=== PATIENT | female | born 1975 | race Caucasian/White ===

== ENCOUNTER → 2019-07-12 | Outpatient (CLI) | payer OTHER, SELFPAY ==
[2019-07-15 11:16] LABS: HPV Reflexed? NOT INDICATED
== END | disposition home or self-care (01) ==
LOC: LABSPEC 13:58
PROVIDERS: Visit Provider Obstetrics & Gynecology
DX: Z12.4 Encounter for screening for malignant neoplasm of cervix (principal)
CPT/HCPCS: 88175; G0145

== ENCOUNTER 2020-11-06 11:50 | Day surgery (SDC) | payer OTHER, SELFPAY ==
[2020-11-02 11:45] LABS: Hemoglobin 12.6 g/dL (12.0-15.0); Mean Corp Hgb Conc 32.3 g/dL (32-36); Mean Corpuscular Volume 95.8 fL (81-99); Mean Platelet Vol. 9.7 fl (6.2-12.0); Platelet Count 263 K/mm3 (150-450); RBC Distribution Width CV 12.2 % (11.6-14.6); RBC Distribution Width SD 42.7 fl (35.1-43.9); Red Blood Count 4.07 M/mm3 (4.2-5.4); White Blood Count 4.6 K/mm3 (4.4-11.0)
[2020-11-02 11:48] LABS: Prothrombin Time (Protime)PT. 12.3 SECONDS (11.7-14.9)
[2020-11-02 11:49] LABS: Partial Thromboplast Time 22.7 Seconds (24.1-36.2)
--- NOTE | 2020-11-05 20:51 | PCM.HP.BLA ---
History and Physical Date of Admission: 11/06/20 Surgical History and Physical Catherine Morris, a 45 year old female 5 0 0 0 5, presents for L/S LSO and right salpingectomy on November 06, 2020 at 1:30. -- Chronic LLQ Pain; Prior ESSURE -- Concerns regarding LLQ pain from a (L) Ovarian cyst found on US in . 45 y.o. G 5 P 5 non-smoker with history of Irregular Menses and LMP of 08-08-20. Reports that the pain will often radiate around to her back, often cramping with a pulling, stabbing sensation. Adds that she feels very bloated and just not feeling well. LLQ Pain began 6 months ago. Catherine claims it started gradually and has been present Cyst on Ovary seen in . It occurs all the time. It is located in the LLQ of the abdomen. Catherine characterizes it to be to the back. Catherine characterizes the quality cramping.; Catherine characterizes the quality searing.; Catherine characterizes the quality stabbing. Severity is moderate and not improving; Associated signs and symptoms are no menses for 3-4 months. Additional comments are: Feels awful. Additional comments are: cyst noted on left ovary in June. MEDICATIONS HISTORY: Current medications prescribed by our practice are: 1. Provera 10 mg tablet, One pill by mouth once a day ALLERGIES: NKA Infections - Chicken pox Illnesses - no serious past illnesses Accidents - no injuries of consequence Hospitalizations - Childbirth Review of Systems: GENERAL - Denies fever, or chills SKIN - Denies skin changes EYES - Denies visual changes EARS - Denies difficulty hearing NOSE - Denies nasal congestion or bleeding MOUTH - Denies sore throat or difficulty swallowing NECK - Denies pain or swelling RESPIRATORY - Denies shortness of breath or wheezing CARDIOVASCULAR - Denies palpitations or chest pain GASTROINTESTINAL - Denies nausea, vomiting, diarrhea, constipation GENITOURINARY - Denies dysuria, frequency of urination, incontinence of urine MUSCULOSKELETAL - Denies joint or muscle pain NEUROLOGICAL - Denies localized numbness or weakness PSYCHIATRIC - Denies depression or anxiety ENDOCRINE - Denies heat or cold intolerance, weight loss or gain HEMATO-IMMUNOLOGIC - Denies excesive bleeding with cuts SOCIAL HISTORY: Alcohol Use - occasionally Smoking - denies use Diet - no special diet Lifestyle - Exercise - active Seat Belt Use - always 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 Maternal Grandfather: Prostate CA. MENSTRUAL HISTORY: LMP Known?- DefiniteAmount/Duration - 4 days, Regularity - Irregular, Frequency - monthly days, LMP - 08/07/20, Age Onset Menarche - 17 PAST PREGNANCIES: Total Pregnancies - 5; Full Term Pregnancies - 5; Premature - 0; Abortions, Induced - 0; Abortions, Spontaneous - 0; Ectopics - 0; Multiple Births - 0; Living Children - 5 SURGICAL HISTORY: 1. 01/11/2010 Ess[facility] Tubal ; Dylon Coelho M.D. - PHYSICAL EXAM BP- 100/70 Sitting, Right arm, regular cuff Weight- 144.29901 lbs Height- 69.00 inch BMI:21.43 CONSTITUTIONAL - NAD, well nourished, and well developed SKIN - No rash, lesions, or ulcers HEENT - Normocephalic, PERRLA, EOMI NECK - No nodes, no nuchal rigidity and thyroid normal size and texture LYMPH NODES - Palpation of lymph nodes in neck and groins within normal limits LUNGS - CTA x2 without wheezes, crackles or rales CARDIAC - Regular rate and rhythm without rubs, murmurs, or gallops ABDOMEN - Without hepatosplenomegaly, distention, masses, rebound, or guarding; normal bowel sounds; no hernias EXTREMITIES - No edema or calf tenderness NEUROLOGICAL - Cranial nerves II-XII grossly intact PSYCHIATRIC - A and O to time, place, person, mood and affect ASSESSMENT/PLAN: 1. Abdominal Pain,LLQ Likely persistent left ovarian cyst by history and time course. Not resolving. Will proceed with L/S LSO and RS. Discussed RBAs including possibility of not helping or need for laparotomy.
[2020-11-06] VITALS (8 sets, daily range): BP systolic 91–109; BP diastolic 54–68; PULSE 58–74; RESP 16–18; TEMP 36.1–36.4; O2SAT 98–100; BMI 21.7
[2020-11-06 12:35] LABS: Internal QC Validated? YES +Cl - CLEAR BKGD; Pregnancy, Urine Negative Negative
--- NOTE | 2020-11-06 12:40 | OP.PCM_ITS ---
Problems Associated Problem List Diagnoses (1) Left lower quadrant abdominal pain: Report of Operation Pre-Operative Diagnosis: Chronic Left Lower Quadrant Pain Post-Operative Diagnosis: Chronic Left Lower Quadrant Pain Surgery/Procedure Performed:: Laparoscopic Left Salpingo-Oophorectomy, Right Salpingectomy, Removal of ESSURE Coils Description of Surgical Findings:: 8 cm uterus with normal-appearing tubes and ovaries. ESSURE coils present and removed. Adhesions of left sigmoid colon to left anterior abdominal wall. Viewed intraoperatively by Dr. Diaz who thought this may represent diverticular disease. CT scan recommended if pain does not resolve. Surgeon: Dylon Coelho superintendent board mill: Justice Stafford Type of Anesthesia: General (Endotracheal) Anesthesiologist: Fredo Mendoza Specimen's removed: Left fallopian tube and ovary and right fallopian tube; ESSURE coils Estimated Blood Loss (mL): Minimal Fluids Replaced: Crystalloid Description of Procedure: Indications: This is a 45 year old patient who has the above diagnosis. She has persisted in having pain on the left lower quadrant for several months and has had a small persistent left ovarian cyst noted. She had a prior Essure tubal done. She understands that there is no guarantee that this procedure will relieve her of the pain that she has been having and that it is possible laparotomy may be necessary. All questions were answered and we consider the patient well-informed. Procedure: The patient was taken to the operating room where after induction of general anesthesia, she was placed in the dorsolithotomy position and prepped and draped in the usual sterile fashion. The bladder was drained of approximately 100 cc of clear yellow urine with a catheter. Anterior cervix was grasped with the tenaculum. Conn cannula was placed and attention was turned toward the laparoscopic portion of the procedure. Approximately 24 cc of half percent ropivacaine was injected subumbilically, suprapubically and midway between. A 5 mm bladeless trocar was placed subumbilically and intraperitoneal placement confirmed. After CO2 insufflation was complete, a 10/12 mm bladeless trocar was introduced suprapubically. The above findings were noted. A 5 mm bladeless port was then placed midway between these 2 ports for tubal manipulation. Each fallopian tube was identified to its fimbriated end and an Enseal device was used to divide the mesosalpinx to the uterus on the right and the infundibulopelvic ligaments on the left. Tubes and left ovary were removed through the lower 10/12 mm port. The peritoneal cavity and upper abdomen were examined and noted to be normal except for some adhesions in the left lower anterior area and adjacent to the sigmoid colon. Dr. Diaz was in the surgical suite area and he visualized this area and felt it may be some diverticular disease. Photographs were taken. Laparoscopic instruments with as much CO2 gas as possible were removed and incisions were closed with interrupted 4-0 Monocryl suture. Steri-Strips placed across the incision. Vaginal instruments were removed. The patient tolerated the procedure well was taken to recovery room in satisfactory condition and sponge instrument and needle counts were all reportedly correct. Estimated blood loss for the case was minimal. There were no apparent complications of the surgery. Grafts/Implants Used: None Complications None Admit VTE Documentation VTE Present on Admission: Yes VTE Mechan Device Prophylaxis: SCD's
--- NOTE | 2020-11-06 12:44 | PCM.DC ---
Discharge Instructions Diet Discharge Diet: No restrictions (Increase fluid intake for the next 48 hours.) Activity Discharge Activity: Return to Normal Activity, May not drive while taking narcotic pain medications., May Shower and May Take a Tub Bath May resume sexual activity in: 2 weeks Lifting Restrictions: 25 pounds for 2 weeks Additional Activity Instructions:: Ambulate often the next week after surgery. Dressing / Incision Call your doctor if your incision/area has: Continuous Slow Oozing, Sudden Increased Bleeding, Increased Pain/ Swelling, Increased Redness and Foul Smelling Discharge Call your doctor if you observe: Fever of 101 or Higher, Inability to urinate, Inability to have a bowel movement and Using more than one pad per hour Remove Dressing in: do not remove dressing Follow Up Care Please Follow Up With: Dylon Coelho MD When: Call [phone] for an appointment in 2 to 3 weeks Test Results: Test results from this visit will be discussed in further detail at your follow-up appointment, if applicable. Discharge Plan Admission Primary Reason for Your Visit: Left Ovary and Bilateral Tubal Removal Attending Provider: Dylon Coelho Primary Care Provider: Care Floridalma Becerra Primary Discharge Orders/Prescriptions Prescriptions: New oxycodone 5 mg capsule 5 mg PO Q6H PRN (Reason: pain) 7 Days Qty: 10 RF: 0 Continued digestive enzymes Capsule 1 cap PO DAILY RF: 0 lysine 500 mg Tablet 500 mg PO DAILY RF: 0 multivitamin Capsule 1 cap PO DAILY RF: 0 Zyrtec 10 mg Capsule 10 mg PO DAILY PRN (Reason: allergies) RF: 0 Probiotic 10 billion cell Capsule 10,000 mmu cells PO DAILY RF: 0 peppermint oil 50 mg Capsule,Delayed Release(Dr/Ec) 50 mg PO DAILY RF: 0 Referrals / Follow Up: Care PhysicianFloridalma Primary [Primary Care Provider] - Disposition Disposition (needs filled in before D/C Order can be placed): Home, self care
[2020-11-06] MEDS: Lactated Ringers 1,000 ML 100 ML IV (12:50)
--- NOTE | 2020-11-06 13:25 | OV_PTH ---
PATIENT: EDINSON MONTALVO [place] [facility] [place][id number] AGE/SX: 45/F ROOM: RE11/06/[address]: Dr. Dylon Coelho MD : 1975 BED: DIS: 11/06/2020 SPEC #: [id number] RECD: 11/07/20 07:44 STATUS: KAILA REQ #: [id number] BELLA: 11/06/20 13:[address]: Dylon Coelho DEPT: SURGICAL PATHOLOGY RECD BY: Deisi Paez ENTERED: 11/07/20 08:32 SP TYPE: OVARY OTHR DR: No Primary Care Phys Tissues: Ovary, NOS Procedures: Surgery Specimen Level IV HEADER OPERATION: Left laparoscopic salpingo-oophorectomy, right laparoscopic salpingectomy PRE-OP DIAGNOSIS: Chronic left lower quadrant pain TISSUE SUBMITTED: Left ovary and fallopian tube, right fallopian tube, Essure MICROSCOPIC DIAGNOSIS Left ovary and fallopian tube and right fallopian tube and Essure coils, left salpingo-oophorectomy, right salpingectomy: Bilateral fallopian tubes - no pathologic diagnosis. Left ovary - no pathologic diagnosis. Focal tubo-ovarian adhesions. Essure coiled device (gross only). SJ:kathleen 11/08/2020 MICROSCOPIC DESCRIPTION Slides are reviewed. GROSS DESCRIPTION Received in fixative is one container labeled with the patient's name and designated left ovary and fallopian tube and right fallopian tube, Essure coils. The specimen consists of one fallopian tube identified as right fallopian tube and a second fallopian tube and adjacent ovary identified as left fallopian tube and ovary. The right fallopian tube measures 5.5 cm in length and 0.4 cm in diameter. The fimbrial end is identified. Sections reveal unremarkable cut surfaces. The left fallopian tube measures 6 cm in length and 0.3 cm in diameter. The fimbrial end is identified. Focal tubo-ovarian adhesions are noted close to the fimbrial end. Sections reveal unremarkable cut surfaces. A portion of the Essure device is also present in the proximal portion of the fallopian tube. The left ovary measures 2.5 x 1 x 0.8 cm. Sections reveal unremarkable cut surfaces. Also present in the container are three variable sized pieces of metallic coiled device consistent with Essure device. One of the Essure devices is completely stretched out and measures 15 cm in length. The two small coiled metallic device measures 2.5 and 3 cm in length. Welder/Fabricator sections are submitted in four cassettes as follows: 1 - right fallopian tube, 2 - left fallopian tube, 3 & 4 - left ovary, entirely submitted. Essure devices are for gross identification only. / ORA:kathleen 11/07/20 TC:4 CPT: 50247 x2
[2020-11-06] MEDS: Ropivacaine 0.5% 30 ML Vial (13:37)
== END 2020-11-06 17:23 | disposition home or self-care (01) ==
LOC: SDC 11:54 → AC 11:56
PROVIDERS: Anesthesiology; Referring Provider Obstetrics & Gynecology; Visit Provider Obstetrics & Gynecology
PROC: (CPT 58661; principal; 2020-11-06 13:10)
DX: N73.6 Female pelvic peritoneal adhesions (postinfective) (principal); N92.6 Irregular menstruation, unspecified; R10.32 Left lower quadrant pain; G89.29 Other chronic pain; Z20.822 Contact with and (suspected) exposure to COVID-19
CPT/HCPCS: 00840; 58661; 36415; 81025; 85027; 85610; 85730; 86850; 86900; 86901; 87426; 88305; C9803; J7120; C1760; J2405

== ENCOUNTER 2021-07-31 15:13 | Outpatient (CLI) | payer OTHER, SELFPAY ==
[2021-08-07 17:26] LABS: HPV Reflexed? NOT INDICATED
== END 2021-07-31 23:59 | disposition home or self-care (01) ==
LOC: LABSPEC 15:15
PROVIDERS: Visit Provider Obstetrics & Gynecology
DX: Z12.4 Encounter for screening for malignant neoplasm of cervix (principal)
CPT/HCPCS: 88175; G0145

== ENCOUNTER → 2022-11-05 | Outpatient (CLI) | payer OTHER, SELFPAY ==
[2022-11-13 10:09] LABS: HPV APTIMA, High Risk Negative (Negative)
== END | disposition home or self-care (01) ==
PROVIDERS: Visit Provider Obstetrics & Gynecology
DX: Z12.4 Encounter for screening for malignant neoplasm of cervix (principal)
CPT/HCPCS: 87624; 88175; G0145

== ENCOUNTER → 2023-03-03 | Outpatient (CLI) | payer OTHER, SELFPAY ==
--- NOTE | 2023-03-03 08:46 | BI_ITS ---
MAMMOGRAPHY - BILATERAL SCREENING REASON FOR EXAM: Female, 48 years old. Routine annual screening examination. PERTINENT HISTORY: Non-contributory. TECHNIQUE: Digital bilateral breast raimundo (3D mammographic acquisition) in the CC and MLO projections. 2-D mediolateral oblique (MLO) and craniocaudad (CC) views of both breasts were obtained. CAD: Full Field Digital Mammography with Computer Added Detection was performed. COMPARISON: Comparison is made with prior outside examination is March 15, 2021. FINDINGS: Breast Composition: The breasts are heterogeneously dense, which may obscure small masses. There are no dominant masses or suspicious calcifications. Stable small benign-appearing bilateral axillary lymph nodes. No other significant abnormalities are identified. There has been no significant change since the prior study. BI/SCRN MAMM (CAD)W/RAIMUNDO BILAT IMPRESSION: Stable bilateral screening mammogram. Yearly follow-up mammogram recommended. (A) ASSESSMENT CATEGORY: BIRADS Category 2: Benign. A letter regarding these results will be sent to the patient by the facility within 30 days. Approximately 10% of breast cancers are not detected by mammography. A normal mammogram should not delay biopsy of a clinically suspicious abnormality. [id number] Electronically Signed: Carlitos Watson MD at 10:07 EDT ,
== END | disposition home or self-care (01) ==
LOC: OPBI 08:44
PROVIDERS: Referring Provider Obstetrics & Gynecology; Visit Provider Obstetrics & Gynecology
DX: Z12.31 Encounter for screening mammogram for malignant neoplasm of breast (principal)
CPT/HCPCS: 77063; 77067

== ENCOUNTER → 2024-12-13 | Outpatient (CLI) | payer OTHER, SELFPAY ==
--- NOTE | 2024-12-13 14:05 | BI_ITS ---
EXAM: SCRN MAMM (CAD)W/RAIMUNDO BILAT DATE: 12/13/2024 CLINICAL HISTORY: F, Age 49 y/o , SCREENING FOR BREAST CANCER TECHNIQUE: SCRN MAMM (CAD)W/RAIMUNDO BILAT COMPARISON: Prior exam(s) dated 03/03/2023. FINDINGS: TISSUE DENSITY: The breasts are heterogeneously dense, which may obscure small masses. The mammogram demonstrates that the patient has dense breasts. Supplemental screening with whole breast ultrasound or MRI may be considered for further evaluation. Bilateral Breast Mammographic Findings: No significant masses, calcifications or other abnormalities are identified. BI/SCRN MAMM (CAD)W/RAIMUNDO BILAT IMPRESSION: There is no mammographic evidence of malignancy. OVERALL FINAL ASSESSMENT BI-RADS 1: NEGATIVE. RECOMMEND ANNUAL MAMMOGRAPHIC SCREENING. RECOMMENDATION: Routine annual follow-up in 1 Year A letter with findings and recommendations will be mailed to the patient. Reading Location: [id number]
--- OUTSIDE RECORDS SUMMARY | 2024-12-13 23:54 | XMS RPT_ITS | CCD ---
Author Organization [facility] Care Team Providers Care Category Director Name Role Phone BETITO SIMMONS MD Consulting Unavailable ANUSHAANTHROXANE DAWSON MD Admitting Unavailab le MARCANTHONYROXANE MD Primary Care Unavailab le ROXANE TALBOT MD Attending Unavailab le PROVIDER, UNKNOWN Consulting Unavailable PROVIDER, UNKNOWN Consulting Unavailable PROVIDER, UNKNOWN Consulting Unavailable BETITO SIMMONS MD Consulting Unavailable MARCANTHROXANE DAWSON MD Admitting Unavailab le MARCANTHONYROXANE MD Primary Care Unavailab le MARCANTHROXANE DAWSON MD Attending Unavailab le PROVIDER, UNKNOWN Consulting Unavailable PROVIDER, UNKNOWN Consulting Unavailable PROVIDER, UNKNOWN Consulting Unavailable BETITO SIMMONS MD Consulting Unavailable MARVA, KEYUR CASTING WHEEL OPERATOR HELPER Admitting Unavailable MARVA, KEYUR CASTING WHEEL OPERATOR HELPER Primary Care Unavailable MARVA, KEYUR CASTING WHEEL OPERATOR HELPER Attending Unavailable PROVIDER, UNKNOWN Consulting Unavailable PROVIDER, UNKNOWN Consulting Unavailable PROVIDER, UNKNOWN Consulting Unavailable Care Physician, No Primary Primary Care Provider Unavailable Care Physician, No Primary Referring Provider Un available Dr. Roxane Talbot Attending Provider KI COTTRELL, LILIA Koch Unavailable BETITO EMERSON MD Unavailable FLAVIO JIMENEZ MD Unavailable [phone] Aldo SIMMONS MD Unavailable [phone] JAIMEE STEINBERG MD Unavailable [phone] Bella Medina RN Unavailable Unavailable Summer Ordaz Unavailable Unavailable Estela Tolbert RN Unavailable Unavailable SUMMER ORDAZ Unavailable Unavailable PEBBLES ALEGRIA-Monae, JAIME Draper Unavailable Unav ailable Patricia Marquez Unavailable Unavailable Unavailable Unavailable Roxane Talbot Attending Unavailable Care Physician, No Primary Primary Care Unava ilable Care Physician, No Primary Referring Unava ilSinan Mooreon Attending Unavailable Roxane Talbot Referring Unavailable Care Physician, No Primary Primary Care Unava ilable Care Physician, No Primary Primary Care Provider Unavailable Julieth COTTRELL, Dr. Betts Attending Provider Dr. Roxane Talbot MD Referring Provider Care Physician, No Primary Referring Provider Un available Medications Current Medications Medication Drug Class(es) Dates Sig (Normalized) Sig (Original) Biote SGS + (1 source) Start: 12-08-2023 Biote SGS + Active 1 NMA PO DAILY December 08, 2023 12:00am cetirizine hydrochloride 10 mg oral capsule (6 sources) Histamine-1 Receptor Antagonist Start: 11-05-2022 take 1 capsule by mouth once daily as needed Cetirizine (Zyrtec) 10 mg capsule Active 10 mg PO DAILY as needed November 05, 2022 12:00am Start: 10-30-2020 End: 01-11-2021 take 1 capsule by mouth once daily as needed Cetirizine (Zyrtec) 10 mg Capsule Discontinued 10 mg PO DAILY as needed for allergies October 30, 2020 12:00am January 11, 2021 8:51am cholecalciferol 0.125 mg oral capsule (4 sources) Vitamin D Start: 12-08-2023 take 1 capsule by mouth once daily Cholecalciferol (Vitamin D3) 125 mcg (5,000 unit) capsule Active 125 ug PO DAILY December 08, 2023 12:00am Start: 11-05-2022 End: 12-08-2023 take 1 capsule by mouth once daily Cholecalciferol (Vitamin D3) 25 mcg (1,000 unit) capsule Discontinued 25 ug PO DAILY November 05, 2022 12:00am December 08, 2023 8:43am estrogen testosterone pellets (1 source) Start: 12-13-2024 estrogen testosterone pellets Active TD December 13, 2024 12:00am progesterone 200 mg oral capsule (2 sources) Progesterone Start: 12-08-2023 End: 12-08-2023 take 1 capsule by mouth once daily Progesterone Micronized 200 mg capsule Active 200 mg PO DAILY December 08, 2023 8:45am Completed/Discontinued Medications Medication Drug Class(es) Dates Sig (Normalized) Sig (Original) amoxicillin 500 mg oral capsule (4 sources) Penicillin-class Antibacterial Start: 06-29-2018 End: 10-26-2018 take 1 capsule by mouth three times daily Amoxicillin 500 MG Oral Capsule ; 1 (one) Capsule three times daily for 7 days Quantity: 21 {Capsule} Refills: 0 Ordered: 26-Oct-2018 Start: 29-Jun-2018 End: 26-Oct-2018 Status: Inactive Start: 12-22-2015 End: 01-01-2016 take 1 capsule by mouth three times daily AMOXICILLIN, 500MG (Oral Capsule) ; 1 (one) Capsule three times daily for 10 days Quantity: 30 {Capsule} Refills: 0 Ordered: 04-Oct-2016 MD LILIA EMERSON Start: 22-Dec-2015 End: 01-Jan-2016 Status: Inactive amoxicillin 875 mg / clavulanate 125 mg oral tablet (1 source) Penicillin-class Antibacterial Start: 07-10-2023 End: 10-14-2023 Amoxicillin-Pot Clavulanate 875-125 mg tablet Discontinued 1 {tbl} PO Q12H 14 0 July 10, 2023 1:00am October 14, 2023 8:35am cromolyn sodium 40 mg/ml ophthalmic solution (2 sources) Mast Cell Stabilizer Start: 10-02-2012 End: 11-01-2012 CROMOLYN SODIUM, 4% (Ophthalmic Solution) ; 2 (two) drop(s) prior to exposure for 30 days Quantity: 30 {Solution} Refills: 0 Ordered: 05-Jan-2014 MD FLAVIO JIMENEZ Start: 02-Oct-2012 End: 01-Nov-2012 Status: Inactive dexamethasone 1 mg/ml / neomycin 3.5 mg/ml / polymyxin b 27011 unt/ml ophthalmic suspension (2 sources) Aminoglycoside Antibacterial, Polymyxin-class Antibacterial, Corticosteroid Start: 10-02-2012 End: 10-07-2012 take 1 drop(s) into the eye(s) every four hours MAXITROL, 3.5-29543-8.1 (Ophthalmic Suspension) ; 1 (one) Drop(s) every four hours for 5 days Quantity: 5 {Suspension} Refills: 0 Ordered: 05-Jan-2014 MD FLAVIO JIMENEZ Start: 02-Oct-2012 End: 07-Oct-2012 Status: Inactive Digestive Enzymes (2 sources) Start: 10-30-2020 End: 01-11-2021 take 1 capsule by mouth once daily Digestive Enzymes Discontinued 1 CAP PO DAILY October 30, 2020 12:00am January 11, 2021 8:51am Digestive Enzymes Capsule (1 source) Start: 10-30-2020 End: 01-11-2021 take 1 capsule by mouth once daily Digestive Enzymes Capsule Discontinued 1 NMA PO DAILY October 30, 2020 12:00am January 11, 2021 8:51am 12 hr fexofenadine hydrochloride 60 mg / pseudoephedrine hydrochloride 120 mg extended release oral tablet (2 sources) alpha-Adrenergic Agonist, Histamine-1 Receptor Antagonist take 1 tablet by mouth once daily MAGED-D [employer]ERGY [employer] CONGESTION, 60-120MG (Oral Tablet Extended Release 12 Hour) ; 1 daily (60-120 MG) Status: Inactive fluticasone propionate 0.05 mg/actuat metered dose nasal spray (2 sources) Corticosteroid Start: 09-25-2012 End: 12-22-2015 FLUTICASONE PROPIONATE, 50MCG/ACT (Nasal Suspension) ; 1 (one) each nostril squirt two times daily for 0 days Quantity: 1 {bottle(s)} Refills: 0 Ordered: 22-Dec-2015 THOR Medina Start: 25-Sep-2012 End: 22-Dec-2015 Status: Inactive hydrocortisone 10 mg/ml / neomycin 3.5 mg/ml / polymyxin b 79969 unt/ml otic suspension (2 sources) Aminoglycoside Antibacterial, Polymyxin-class Antibacterial, Corticosteroid Start: 12-22-2015 End: 12-29-2015 NEOMYCIN-POLYMYXIN- HC, 3.5-43992-7 (Otic Suspension) ; two drop(s) four times daily for 7 days Quantity: 1 {Bottle} Refills: 0 Ordered: 04-Oct-2016 MD LILIA EMERSON Start: 22-Dec-2015 End: 29-Dec-2015 Status: Inactive lactobacillus acidophilus [id number] unt oral capsule (3 sources) Start: 10-30-2020 End: 01-11-2021 take 10 capsules by mouth once daily Lactobacillus Acidophilus (Probiotic) 10 billion cell Capsule Discontinued 53327 NMA PO DAILY October 30, 2020 12:00am January 11, 2021 8:51am lysine 500 mg oral tablet (3 sources) Start: 10-30-2020 End: 01-11-2021 take 1 tablet by mouth once daily Lysine 500 mg Tablet Discontinued 500 mg PO DAILY October 30, 2020 12:00am January 11, 2021 8:51am Multivitamin Capsule (1 source) Start: 10-30-2020 End: 11-05-2022 Multivitamin Capsule Discontinued 1 NMA PO DAILY October 30, 2020 12:00am November 05, 2022 2:40pm Multivitamin preparation (2 sources) Start: 10-30-2020 End: 11-05-2022 take 1 capsule by mouth once daily Multivitamin Discontinued 1 CAP PO DAILY October 30, 2020 12:00am November 05, 2022 2:40pm oxyCODONE hydrochloride 5 mg oral capsule (3 sources) Opioid Agonist Start: 11-06-2020 End: 01-11-2021 take 1 capsule by mouth every six hours as needed for pain Oxycodone 5 mg capsule Discontinued 5 mg PO EVERY 6 HOURS as needed for pain 10 7 0 November 06, 2020 January 11, 2021 8:50am Acute postoperative pain Other acute postprocedural pain Peppermint oil (2 sources) Start: 10-30-2020 End: 01-11-2021 take 50 mg by mouth once daily Peppermint Oil Discontinued 50 MG PO DAILY October 30, 2020 12:00am January 11, 2021 8:50am Peppermint Oil 50 mg Capsule,Delayed Release(Dr/Ec) (1 source) Start: 10-30-2020 End: 01-11-2021 take 1 capsule by mouth once daily Peppermint Oil 50 mg Capsule,Delayed Release(Dr/Ec) Discontinued 50 mg PO DAILY October 30, 2020 12:00am January 11, 2021 8:50am predniSONE 20 mg oral tablet (6 sources) Start: 11-25-2020 End: 11-28-2020 take 1 tablet by mouth once daily predniSONE 20 MG Oral Tablet ; 1 (one) Tablet daily for 3 days Quantity: 3 {Tablet} Refills: 0 Ordered: 15-Mar-2021 SABRA ROGEL Start: 25-Nov-2020 End: 28-Nov-2020 Status: Inactive Start: 07-25-2020 End: 08-06-2020 take 6 tablets by mouth once daily at mealtime predniSONE 10 MG Oral Tablet ; 6 Tablets days 1,2,3; 4 tablets days 4,5,6; 2 tablets days 7,8,9; 1 tablet days 10,11,12. for 12 days Quantity: 40 {Tablet} Refills: 0 Ordered: 25-Jul-2020 MD Aldo SIMMONS Start: 25-Jul-2020 End: 06-Aug-2020 Status: Inactive Comments: Take with food. Start: 10-02-2012 End: 10-14-2012 PREDNISONE (STEVE), 10MG (Oral Tablet) ; 1 Tablet D 1-3=6tab daily D 4-6=4tab D 7-9=2tab [id number] for 12 days Quantity: 40 {Tablet} Refills: 0 Ordered: 02-Oct-2012 MD FLAVIO JIMENEZ Start: 02-Oct-2012 End: 14-Oct-2012 Status: Inactive Comments: Days 1,2,3 = 6 tabs daily; Days 4,5,6 = 4 tabs daily; Days 7,8,9 = 2 tabs daily; Days 10,11,12 = 1 tab daily; Take with food. Take each day's medication at breakfast (with food). Comment on above: Days 1,2,3 = 6 tabs daily; Days 4,5,6 = 4 tabs daily; Days 7,8,9 = 2 tabs daily; Days 10,11,12 = 1 tab daily; Take with food. Take each day's medication at breakfast (with food). Take with food. 120 actuat testosterone 10 mg/actuat topical gel (1 source) Androgen Start: 12-08-2023 End: 12-13-2024 Testosterone 10 mg/0.5 gram /actuation gel in metered-dose pump Discontinued 2 NMA TD EVERY MORNING December 08, 2023 12:00am December 13, 2024 2:47pm apply evenly over front and inner area of EACH thigh; avoid water for >=2 hrs Problems Active Problems Problem Classification Problem Date Documented Date Episodic/Chronic Abdominal pain (10 sources) Left lower quadrant pain; Translations: [Left lower quadrant pain] 05-24-2021 Episodic Comment on above: left Administrative/social admission (6 sources) Patient encounter status; Translations: [Counseling, unspecified] 10-11-2020 Episodic Allergic reactions (10 sources) Urticaria; Translations: [Urticaria, unspecified] 11-25-2020 Episodic Fever of unknown origin (1 source) Fever; Translations: [Fever, unspecified] 07-10-2023 Episodic Malaise and fatigue (1 source) Other fatigue; Translations: [Other fatigue] Onset: 10-04-2022 Episodic Menopausal disorders (4 sources) Menopausal syndrome; Translations: [Menopausal and female climacteric states] 11-05-2022 Chronic Comment on above: information given, o n bioidentical HRT by another provider, handouts given regarding risks, encouraged FDA approved products reviewed indications for franco if irregular bleeding. Menstrual disorders (4 sources) Irregular periods; Translations: [Irregular menstruation, unspecified] 10-11-2020 Chronic Other ear and sense organ disorders (2 sources) Otalgia, right ear; Translations: [Otalgia, unspecified] 12-22-2015 Episodic Other female genital disorders (2 sources) Vaginal bleeding; Translations: [Abnormal uterine and vaginal bleeding, unspecified] 12-13-2024 Chronic Comment on above: on bioidentical HRT , ordered pelvic US Other nervous system disorders (3 sources) Acute postoperative pain; Translations: [Other acute postprocedural pain] 11-06-2020 Episodic Other nutritional; endocrine; and metabolic disorders (1 source) Abnormal weight gain; Translations: [Abnormal weight gain] Onset: 10-04-2022 Episodic Other screening for suspected conditions (not mental disorders or infectious disease) (11 sources) Abnormal level of hormones in specimens from female genital organs; Translations: [Encounter for screening mammogram for malignant neoplasm of breast] Onset: 03-15-2022 Episodic Other upper respiratory disease (6 sources) Allergic rhinitis due to pollen; Translations: [Allergic rhinitis due to pollen] 10-07-2024 Chronic Other upper respiratory disease (13 sources) Seasonal allergy; Translations: [Other seasonal allergic rhinitis] 10-11-2020 Chronic Comment on above: Has tried oral and n javon antihistamines/steroids, eye drops. Other upper respiratory disease (4 sources) Allergic rhinitis; Translations: [Allergic rhinitis, unspecified] 09-12-2011 Chronic Other upper respiratory infections (4 sources) Bacterial sinusitis; Translations: [Chronic sinusitis, unspecified] 10-11-2020 Chronic Other upper respiratory infections (4 sources) Acute bacterial pharyngitis; Translations: [Acute pharyngitis due to other specified organisms] 12-22-2015 Episodic Past or Other Problems Problem Classification Problem Date Documented Da te Episodic/Chronic Unclassified (2 sources) Allergic Rhinitis.. - The history today is reported by the patient. Symptoms include itchy throat, sneezing, runny nose, itchy nose, itchy eyes and shortness of breath. Onset was sudden 1 week(s) ago. Note for Allergic Rhinitis..: Has been using maged and zyrtec but is not helping 10-07-2024 Unclassified (2 sources) Allergic Rhinitis.. - Symptoms include sneezing, itchy eyes and coughing. Associated include nasal congestion. Note for Allergic Rhinitis..: Pt takes Zyrtec with some relief. 10-11-2020 Unclassified (2 sources) !Patient notification of lab results - Dr. Simmons. The test(s) that you had done were/was blood work (Your labs were normal but the eosinophil count was elevated (which is often the case with an allergy or hives). This reinforces that it's likly hives and hopefully the prednisone will quiet the immune system and resolve the rash.). You should call our office if you have any questions. Please continue your current medication/therapy and let us know if your symptoms do not improve. 07-27-2020 Unclassified (2 sources) Rash - The onset of the rash has been acute and has been occurring for 9 days. The rash is characterized as red and flat. There has been associated itching. Note for Rash: Pt c/o rash on entire body except for head. She was having back pain in May and saw a chiropractor in Jun who did an xray. The xray showed an inflamed gut. She has tried Benadryl, but if makes her fatigued and an allergy medication which helped for a few hours. She started taking a daily vitamin, probiotic, peppermint oil pill, and a digestive pill yesterday. 07-25-2020 Unclassified (2 sources) Allergic Rhinitis.. - The history today is reported by the patient. Symptoms include rash, itching (skin), runny nose, itchy nose and itchy eyes. The rash is located on the arm(s). The rash is described as red. Note for Allergic Rhinitis..: pt c/o allergies and poison ruben. 10-26-2018 Unclassified (2 sources) sore throat - The onset of the sore throat has been sudden and has been occurring in an intermittent pattern for 1 week. The symptoms have been associated with change in voice, cough, ear pain, runny nose and swelling of neck glands. Note for sore throat: C/O nausea. 06-29-2018 Unclassified (2 sources) Allergic Rhinitis.. - The history today is reported by the patient. Symptoms include sneezing, runny nose, itchy nose, itchy eyes, hoarseness and wheezing (when outside). Note for Allergic Rhinitis..: Eyes are red 10-04-2016 Unclassified (2 sources) sore throat - The onset of the sore throat has been sudden and has been occurring in a persistent pattern. The symptoms have been associated with change in voice, cough, difficulty in breathing, difficulty in swallowing, ear pain, runny nose, sinus pain and swelling of neck glands. Note for sore throat: Ears have hurt for sometime.Would like to have them checked for infection 12-22-2015 Unclassified (2 sources) Allergic Rhinitis.. - Symptoms include itchy throat, sneezing and itchy eyes. 10-12-2015 Unclassified (2 sources) Eye Itching - The last clinic visit was 1 week(s) ago. Symptoms include eye itching, eye redness, eye burning, eye pain and lid crusting. Symptoms are located in the left eye and the right eye. Onset was 2 day(s) ago. The patient describes this as worsening. Note for Eye itching: Eyes were crusted shut this morning 10-02-2012 Unclassified (2 sources) Allergic Rhinitis.. - The history today is reported by the patient. The last clinic visit was 12 month(s) ago. Management changes made at the last visit include adding medication (kenalog injection). Symptoms include sneezing, itchy nose and itchy eyes. Onset was day(s) ago. Note for Allergic reaction: Usually gets a kenalog injection in the spring. Tried OTC claritin etc without relief. 09-25-2012 Unclassified (2 sources) Rash - The rash has been occurring for 5 days. The course has been constant. The rash is characterized as red. The rash was first seen on the face. It spread to the face, the neck and the trunk. There has been associated itching. Note for Rash: taking OTC poison ruben pills 02-05-2012 Unclassified (2 sources) Allergic Rhinitis.. - Symptoms include itchy throat, sneezing, runny nose and itchy eyes. Onset was 2 week(s) ago. Note for Allergic Rhinitis..: . 09-12-2011 Unclassified (2 sources) Allergic Rhinitis.. - The history today is reported by the patient. Symptoms include runny nose, itchy eyes and coughing. Note for Allergic Rhinitis..: tried OTC maged: 10-15-2010 Results Test Name Value Interpretation Reference Range Facil ity ESTROGENS FRACTION [CCL]on 0 10-08-2022 Estradiol Serum 4.2 pg/mL Normal [facility] Comment on above: Result Comment: REFE RENCE INTERVAL: Estradiol by Tumbler Machine Operator For a complete set of all established reference intervals, refer to [facility]/Tests/Pub/[id number]. This test was developed and its performance characteristics determined by [facility]. It has not been cleared or approved by the [place] Food and Drug Administration. This test was performed in a CLIA certified laboratory and is intended for clinical purposes. Performed By: #### 2 [id number] #### [facility],[address] [place] [address] Estrogens Total 15.7 pg/mL Normal [facility] Comment on above: Result Comment: Refe rence interval of estrogens (pg/mL) Estrone Estradiol Total Estrogens Early follicular <150.0 30.0-100.0 30.0-250.0 Late follicular 100.0-250.0 100.0-400.0 200.0-650.0 Luteal <200.0 50.0-150.0 50.0-350.0 Post-menopausal 3.0-32.0 2.0-21.0 5.0-52.0 REFERENCE INTERVAL: Estrogens Total Calculation For a complete set of all established reference intervals, refer to [facility]/Tests/Pub/[id number]. Performed By: [facility] [address] [place] [address] Hull Line Crew Member: Hans Fisher MD, PhD [address] [address] Kayden Priest III, M.D. [id number] Performed By: #### 2 [id number] #### [address] [address] Estrone Serum 11.5 pg/mL Normal [facility] Comment on above: Result Comment: INTE RPRETIVE INFORMATION: Estrone by Tumbler Machine Operator For a complete set of all established reference intervals, refer to [employer]/Tests/Pub/[id number]. This test was developed and its performance characteristics determined by [facility]. It has not been cleared or approved by the [place] Food and Drug Administration. This test was performed in a CLIA certified laboratory and is intended for clinical purposes. Performed By: #### 2 [id number] #### [address] [address] FSH [CCL]on 10-08-2022 FSH 56.1 mIU/mL Normal See comment [facility] Comment on above: Result Comment: Refe rence range: Follicular: 3.5-12.5 mIU/mL Ovulation: 4.7-21.5 mIU/mL Luteal: 1.7-7.7 mIU/mL Postmenopausal: 25.8-134.8 mIU/mL [address] [address] Kayden Priest III, M.D. [id number] Performed By: #### 2 [id number] #### [address] [address] PROGESTERONE [CCL]on 023 Progesterone <0.2 Normal See comment [facility] Comment on above: Result Comment: Mens trual Cycle Progesterone Reference Ranges: Follicular: <1.0 ng/mL Ovulation: <12.1 ng/mL Luteal: 1.8 to 23.9 ng/mL. Progesterone Reference Ranges vary by gestational period: First Trimester: 11.0 to 44.3 ng/mL Second Trimester: 25.4 to 83.3 ng/mL Third Trimester: 58.7 to 214 ng/mL Post menopausal Progesterone: <0.5 ng/mL Reference: 1. Progesterone (Progesterone III) [package insert V 1.0 Macanese]. [facility], [place], [place]. March 2015. Result rechecked. [address] [place] [address] Kayden Priest III, M.D. [id number] Performed By: #### 2 [id number] #### [address] [address] T3, FREE [CCL]on 10-08-2022 Free T3 [Mass/Vol] 3.7 pg/mL Normal 2.3-4.1 [facility] Comment on above: Result Comment: [address] [address] Kayden Priest III, M.D. [id number] Performed By: #### 2 [address]5949 #### [address] [address] TESTOSTERONE [CCL]on 023 Testosterone [Mass/Vol] ng/dL Normal <40 [facility] Comment on above: Result Comment: [address] [place] [address] Kayden Priest III, M.D. [id number] Performed By: #### 2 [id number] #### [address] [address] THYROGLOBULIN [CCL]on 2022 Thyroglobulin Ab, Serum <0.9 Normal <4.0 [facility] Comment on above: Result Comment: The Thyroglobulin Antibody test was performed using the [employer] DXI paramagnetic particle chemiluminescent immunoassay method. Results obtained with different assay methods or kits cannot be used interchangeably. Performed By: #### 2 [id number] #### [address] [address] Thyroglobulin, Serum 18.1 ng/mL Normal 1.6-50.0 [facility] Comment on above: Result Comment: The Thyroglobulin test was performed using the [employer] DXI paramagnetic particle chemiluminescent immunoassay method. Results obtained with different assay methods or kits cannot be used interchangeably. [id number] Kayden Priest III, M.D. [id number] Performed By: #### 2 [id number] #### [address] [address] DHEA-S [CCL]on 10-05-2022 DHEA-S 60.0 ug/dL Normal 35.4-256.0 [facility] Comment on above: Result Comment: Refe rence ranges are age and gender specific. For additional information, reference range tables can be found in the laboratory test directory. The normal values are based on the following source: Dehydroepiandrosterone sulfate (DHEA S) [package insert V 17.0 Macanese]. [facility], [place], [place]: January 2013. [address] [address] Kayden Priest III, M.D. [id number] Performed By: #### 2 [id number] #### [address] [address] ESTRADIOL-17B [CCL]on 2022 Estradiol-17B <25 Normal [facility] Comment on above: Result Comment: This test is not suitable for patients receiving treatment with the drug Fulvestrant (Faslodex). The drug causes an interference leading to falsely elevated estradiol results. Menstrual cycle Estradiol reference ranges: Follicular : < 234 pg/mL Ovulation : 41 to 398 pg/mL Luteal : < 342 pg/mL Estradiol reference ranges vary by gestational period: First trimester : 154 to 3243 pg/mL Second trimester : 1561 to [address] pg/mL Third trimester : 8285 to >27780 pg/mL Post-menopausal Estradiol reference range: < 41 pg/mL Reference: 1. Estradiol - E2 (Estradiol III) [package insert V 3.0 Macanese]. [facility], [place], [place], November 2015. [address] [place] [address] Kayden Priest III, M.D. [id number] Performed By: #### 2 [id number] #### [facility],[address] [place] [address] CBC + DIFFon 10-04-2022 Baso # 0.10 x10EE3/UL Normal 0.00 - 0.10 [facility] Comment on above: Performed By: #### 2 [id number] #### [facility],[address] [place] [address] Basophils/100 WBC (Bld) 1.4 % Normal 0.0 - 2.0 % [facility] Comment on above: Performed By: #### 2 14248 #### [facility] [facility],[address] [place] [address] 96584 CBC + DIFF Normal [facility] Comment on above: Result Comment: CBC- COMPLETE BLOOD COUNT Performed By: #### 2 [id number] #### [facility],[address] [place] [address] 48368 EO # 0.50 x10EE3/UL Normal 0.00 - 0.50 [facility] Comment on above: Performed By: #### 2 33823 #### [facility],[address] [place] [address] 66984 Eosinophils/100 WBC (Bld) 11.1 % Abnormal 0.0 - 7.0 % [facility] Comment on above: Performed By: #### 2 07355 #### [facility],[address] [place] [address] 74186 Erythrocyte distribution width (RBC) [Ratio] 12.9 % Normal 12.0 - 15.6 % [facility] Comment on above: Performed By: #### 2 06491 #### [facility],[address] [place], [place] [id number] Hematocrit (Bld) [Volume fraction] 38.8 % Normal 34.0 - 46.0 % [facility] Comment on above: Performed By: #### 2 83145 #### [facility],[address] [place], [place] [id number] Hemoglobin (Bld) [Mass/Vol] 13.0 g/dL Normal 12.0 - 16.0 g/dL [facility] Comment on above: Performed By: #### 2 32435 #### [facility],[address] [place], [place] [id number] Lymph # 1.50 x10EE3/UL Normal 0.80 - 2.80 [facility] Comment on above: Performed By: #### 2 03433 #### [facility],[address] [place], [place] [id number] Lymphocytes/100 WBC (Bld) 32.1 % Normal 20.0 - 45.0 % [facility] Comment on above: Performed By: #### 2 08155 #### [facility],[address] [place] [address] 36940 MANUAL DIFF N/A Normal [facility] Comment on above: Performed By: #### 2 83085 #### [facility],[address] [place] [address] 13734 MCH (RBC) [Entitic mass] 31 pg Normal 27 - 33 pg [facility] Comment on above: Performed By: #### 2 11801 #### [facility],[address] [place] [address] 37963 MCHC 34 X10 3 Normal 32 - 36 [facility] Comment on above: Performed By: #### 2 19926 #### [facility],[address] [place] [address] 02253 MCV (RBC) [Entitic vol] 93 fL Normal 80 - 99 fL [facility] Comment on above: Performed By: #### 2 12198 #### [facility],[address] [place] [address] 32673 Tompkins # 0.40 x10EE3/UL Normal 0.20 - 1.00 [facility] Comment on above: Performed By: #### 2 99901 #### [facility],[address] [place] [address] 04418 MONOS % 9.6 % Normal 0.0 - 10.0 [facility] Comment on above: Performed By: #### 2 17430 #### [facility],[address] [place] [address] 49078 Morphology Naren (Bld) [Interp] N/A Normal [facility] Comment on above: Performed By: #### 2 76720 #### [facility],[address] [place] [address] 98887 Neut # 2.10 x10EE3/UL Normal 1.50 - 7.10 [facility] Comment on above: Performed By: #### 2 97556 #### [facility],[address] [place] [address] 42829 Neutrophils/100 WBC (Bld) 45.8 % Abnormal 46.0 - 76.0 % [facility] Comment on above: Performed By: #### 2 80900 #### [facility],[address] [place] [address] 33565 PLATELET 291 x10EE3/UL Normal 150 - 450 [facility] Comment on above: Performed By: #### 2 29558 #### [facility],[address] [place] [address] 75284 Platelet mean volume (Bld) [Entitic vol] 7.8 fL Normal 6.6 - 10.5 fL [facility] Comment on above: Result Comment: AUTO MATED DIFFERENTIAL Performed By: #### 2 31615 #### [facility],[address] [place] [address] 87724 RBC 4.17 x 10EE6/UL Normal 4.10 - 5.30 [facility] Comment on above: Performed By: #### 2 91547 #### [facility],[address] [place] [address] 12156 WBC 4.6 x 10EE3/UL Normal 4.5 - 10.8 [facility] Comment on above: Performed By: #### 2 79040 #### [facility],[address] [place] [address] CMP with eGFRon 10-04-2022 AGE 47 years Normal [facility] Comment on above: Performed By: #### 2 96542 #### [facility],[address] [place] [address] Albumin [Mass/Vol] 4.4 g/dL Normal 3.4 - 5.0 g/dL [facility] Comment on above: Performed By: #### 2 11930 #### [facility],[address] [place] [address] Albumin/Globulin [Mass ratio] 1.4 {ratio} Normal 0.9 - 1.6 [facility] Comment on above: Performed By: #### 2 48898 #### [facility],[address] [place] [address] ALK PHOS 84 U/L Normal 46 - 116 U/L [facility] Comment on above: Performed By: #### 2 70759 #### [facility],[address] [place] [address] ALT [Catalytic activity/Vol] 29 U/L Normal 14 - 59 U/L [facility] Comment on above: Performed By: #### 2 76689 #### [facility],[address] [place] [address] Anion gap [Moles/Vol] 15 mmol/L Normal 10 - 20 mmol/L [facility] Comment on above: Performed By: #### 2 47968 #### [facility],[address] [place] [address] AST [Catalytic activity/Vol] 25 U/L Normal 13 - 39 U/L [facility] Comment on above: Performed By: #### 2 55387 #### [facility],[address] [place] [address] 60942 B/C RATIO 15 ratio Normal 0 - 30 [facility] Comment on above: Performed By: #### 2 03045 #### [facility],[address] [place] [address] 49911 Bilirubin [Mass/Vol] 0.6 mg/dL Normal 0.2 - 1.0 mg/dL [facility] Comment on above: Performed By: #### 2 04829 #### [facility],[address] [place] [address] 87329 Calcium [Mass/Vol] 9.6 mg/dL Normal 8.5 - 10. 1 mg/dL [facility] Comment on above: Performed By: #### 2 70387 #### [facility],[address] [place] [address] 26603 Chloride [Moles/Vol] 104 mmol/L Normal 98 - 107 mmol/L [facility] Comment on above: Performed By: #### 2 09909 #### [facility],[address] [place], [place] [id number] CMP with eGFR Normal [facility] Comment on above: Result Comment: COMP REHENSIVE METABOLIC PANEL Performed By: #### 2 47788 #### [facility],[address] [place] [address] 80073 CO2 [Moles/Vol] 27.6 mmol/L Normal 21.0 - 32.0 mmol/L [facility] Comment on above: Performed By: #### 2 87926 #### [facility],[address] [place] [address] 89411 Creatinine [Mass/Vol] 0.78 mg/dL Normal 0.55 - 1.02 mg/dL [facility] Comment on above: Performed By: #### 2 41737 #### [facility],[address] [place] [address] 52796 GFR/1.73 sq M.predicted among non-blacks MDRD (S/P/Bld) [Vol rate/Area] mL/min/{1.73_m2} Normal 60 - 999 [facility] Comment on above: Performed By: #### 2 93653 #### [facility],[address] [place] [address] 26342 Result Comment: ACCO RDING TO THE NATIONAL KIDNEY DISEASE EDUCATION PROGRAM(NKDE), A NORMAL eGFR IS A VALUE GREATER THAN OR EQUAL TO 60 ML/MIN/1.73 SQ METERS. CHRONIC KIDNEY DISEASE: <60mL/MIN/1.73 SQ METERS KIDNEY FAILURE: <15mL/MIN/1.73 SQ METERS THIS TEST SHOULD ONLY BE USED FOR PATIENTS 18 YEARS OF AGE AND OLDER. Globulin (S) [Mass/Vol] 3.1 g/dL Normal 1.5 - 3.8 g/dL [facility] Comment on above: Performed By: #### 2 91640 #### [address] [address] Glucose [Mass/Vol] 84 mg/dL Normal 74 - 106 mg/dL [facility] Comment on above: Performed By: #### 2 43114 #### [address] [address] Potassium [Moles/Vol] 3.9 mmol/L Normal 3.5 - 5.1 mmol/L [facility] Comment on above: Performed By: #### 2 59817 #### [address] [address] Protein [Mass/Vol] 7.5 g/dL Normal 6.4 - 8.2 g/dL [facility] Comment on above: Performed By: #### 2 29581 #### [address] [address] Sodium [Moles/Vol] 143 mmol/L Normal 136 - 145 mmol/L [facility] Comment on above: Performed By: #### 2 87668 #### [facility],[address] [place] [address] 94057 Urea nitrogen [Mass/Vol] 12 mg/dL Normal 7 - 18 mg/dL [facility] Comment on above: Performed By: #### 2 75593 #### [facility],[address] [place], [place] [id number] LIPID PROFILEon 10-04-2022 Cholesterol [Mass/Vol] 229 mg/dL Normal 0 - 240 mg/dL [facility] Comment on above: Performed By: #### 2 70263 #### [facility],[address] [place] [address] Cholesterol in HDL [Mass/Vol] 57 mg/dL Normal 40 - 60 [facility] Comment on above: Performed By: #### 2 82451 #### [facility],[address] [place], [place] [id number] Cholesterol in LDL [Mass/Vol] 152 mg/dL Abnormal 0 - 129 mg/dL [facility] Comment on above: Performed By: #### 2 66088 #### [facility],[address] [place], [place] [id number] Cholesterol.total/C holesterol in HDL [Mass ratio] 4.0 {ratio} Normal 0.0 - 5.0 [facility] Comment on above: Performed By: #### 2 20311 #### [facility],[address] [place] [address] 60120 Lipid 1996 panel Normal [facility] Comment on above: Result Comment: LIPI D PROFILE Performed By: #### 2 35244 #### [facility],[address] [place] [address] 15688 Triglyceride [Mass/Vol] 99 mg/dL Normal 0 - 150 mg/dL [facility] Comment on above: Performed By: #### 2 93431 #### [facility],[address] [place] [address] Laboratory - Chemistry and C hemistry - challengeon 10-04-2022 25-hydroxyvitamin D3 [Mass/Vol] 66.40 ng/mL Normal 30.00 - 100 ng/mL [facility]; [facility], [facility] Work Phone: Albumin [Mass/Vol] 1.4 g/dL Normal 0.9 - 1.6 [facility]; [facility], [facility] Work Phone: Cholesterol in HDL [Mass or moles/Vol] 57 mg/dL Normal 40 - 60 mg/dL [facility]; [facility], [facility] Work Phone: Free T3 [Mass/Vol] 3.7 pg/mL Normal 2.3 - 4.1 pg/mL [facility]; [facility], [facility] Work Phone: GFR/1.73 sq M.predicted among blacks MDRD (S/P/Bld) [Vol rate/Area] mL/min/{1.73_m2} Normal 60 - 999 {ML/MINUTE} [facility]; [facility], [facility] Work Phone: GFR/1.73 sq M.predicted MDRD (S/P/Bld) [Vol rate/Area] mL/min/{1.73_m2} Normal 60 - 999 {ML/MINUTE} [facility].; [facility], [facility]. Work Phone: Lipid 1996 panel Normal [facility]; [facility], [facility] Work Phone: Testosterone [Mass/Vol] ng/dL Normal [facility]; [facility], [facility] Work Phone: Urea nitrogen/Creatinine [Mass ratio] 15 {ratio} Normal 0 - 30 {ratio} [facility]; [facility] Work Phone: Laboratory - Hematology and Cell countson 10-04-2022 Basophils (Bld) [#/Vol] 0.10 {x10EE3/UL} Normal 0.00 - 0.10 {x10EE3/UL} [facility]; [facility] Work Phone: Eosinophils (Bld) [#/Vol] 0.50 {x10EE3/UL} Normal 0.00 - 0.50 {x10EE3/UL} [facility].; [facility] Work Phone: Lymphocytes (Bld) [#/Vol] 1.50 {x10EE3/UL} Normal 0.80 - 2.80 {x10EE3/UL} [facility].; [facility] Work Phone: MCHC (RBC) [Mass/Vol] 34 {X10_3} Normal 32 - 36 {X10_3} [facility].; [facility]. Work Phone: Monocytes (Bld) [#/Vol] 0.40 {x10EE3/UL} Normal 0.20 - 1.00 {x10EE3/UL} [facility].; [facility]. Work Phone: Monocytes/100 WBC (Bld) 9.6 % Normal 0.0 - 10.0 % [facility]; [facility] Work Phone: Neutrophils (Bld) [#/Vol] 2.10 {x10EE3/UL} Normal 1.50 - 7.10 {x10EE3/UL} [facility]; [facility], [facility] Work Phone: Platelets (Bld) [#/Vol] 291 {x10EE3/UL} Normal 150 - 450 {x10EE3/UL} [facility].; [facility], [facility]. Work Phone: RBC (Bld) [#/Vol] 4.17 {x_10EE6/UL} Normal 4.10 - 5.30 {x_10EE6/UL} [facility].; [facility], [facility]. Work Phone: WBC (Bld) [#/Vol] 4.6 {x_10EE3/UL} Normal 4.5 - 10.8 {x_10EE3/UL} [facility], [facility].; [facility], [facility]. Work Phone: No Panel Informationon 10-04 AGE 47 {years} Normal [facility].; [facility], [facility]. Work Phone: CBC + DIFF Normal [facility].; [facility], [facility]. Work Phone: CMP with eGFR Normal [facility].; [facility], [facility]. Work Phone: DHEA-S 60.0 ug/dL Normal 35.4 - 256.0 ug/dL [facility].; [facility], [facility]. Work Phone: Estradiol Serum 4.2 pg/mL Normal [facility].; [facility], [facility]. Work Phone: Estradiol-17B <25 Normal [facility].; [facility], [facility]. Work Phone: Estrogens Total 15.7 pg/mL Normal [facility].; [facility], [facility]. Work Phone: Estrone Serum 11.5 pg/mL Normal [facility].; [facility]. Work Phone: FSH 56.1 m[iU]/mL Normal [facility].; [facility]. Work Phone: Progesterone <0.2 Normal [facility].; [facility]. Work Phone: Thyroglobulin Ab, Serum <0.9 Normal [facility].; [facility]. Work Phone: Thyroglobulin, Serum 18.1 ng/mL Normal 1.6 - 50.0 ng/mL [facility].; [facility] Work Phone: T4-FREE (FREE THYROXINE)on 0 10-04-2022 Free T4 [Mass/Vol] 0.92 ng/dL Normal 0.76 - 1. 46 ng/dL [facility] Comment on above: Result Comment: P otential of falsely elevated results when biotin concentrations are > 10 ng/mL. Performed By: #### 2 [id number] #### [place] [id number] TSHon 10-04-2022 TSH Qn 0.83 m[IU]/L Normal 0.35 - 3.74 {uIU/ml} [facility] Comment on above: Performed By: #### 2 39745 #### [facility],[address] [place], [place] [id number] VITAMIN D, 25 HYDROXYon 09-15 VitD 66.40 ng/mL Normal 30.00 - 100 [facility] Comment on above: Result Comment: 25-O HD3 indicates both endogenous production and supplementation. 25-OHD2 is an indicator of exogenous sources, such as diet or supplementation. Therapy is based on measurement of Total 25-OHD, with levels <20 ng/mL indicative of Vitamin D deficiency, while levels between 20 ng/mL and 30 ng/mL suggest insufficiency. Optimal levels are >=30ng/mL. Vitamin D, 25-OH D3 Not Established Vitamin D, 25-OH D2 Not Established Performed By: #### 2 54838 #### [facility],[address] [place] [address] 38475 3D MAMM BILAT DIAGNOSTICon 0 03-15-2022 3D MAMM BILAT DIAGNOSTIC [address] [address] Patient: EDINSON MONTALVO Phone#: : [phone] Age: 47 Gender: F Pt. Type: Out Account: [id number] Location: Ordering: ROXANE TALBOT Exam Date: 03/15/2022/9:19 Family Phys: BETITO CHAVIRATO Charge Code: 640327 Physician: Steele Order #: [id number] Dose#: PROCEDURE: BILATERAL DIAGNOSTIC BREAST TOMOSYNTHESIS MAMMOGRAM WITH CAD COMPARISON: [facility], 3D BILAT SCREEN, 03/15/2021, 11:22. [facility], LT SPOT/MAG DIGITAL, 03/15/2021, 11:59. [facility], 3D BILAT DIAGNOSTIC, 08/03/2021, 11:15. INDICATIONS: Bilateral dignostic 6 month follow up. BREAST COMPOSITION: Heterogeneously dense,which could obscure small masses(51-75% glandular). FINDINGS: RIGHT BREAST: No significant suspicious finding. No significant change has occurred. Stable calcifications. LEFT BREAST: No significant suspicious finding. No significant change has occurred. Stable calcifications. RECOMMENDATIONS: ROUTINE MAMMOGRAM AND CLINICAL EVALUATION IN 12 MONTHS. PLEASE NOTE: A NORMAL MAMMOGRAM DOES NOT EXCLUDE THE POSSIBILITY OF BREAST CANCER. A CLINICALLY SUSPICIOUS PALPABLE LUMP SHOULD BE BIOPSIED. THIS FACILITY UTILIZES A REMINDER SYSTEM TO ENSURE THAT ALL PATIENTS RECEIVE REMINDER LETTERS FOR APPOINTMENTS. THIS INCLUDES REMINDERS FOR ROUTINE MAMMOGRAMS, DIAGNOSITC MAMMOGRAMS, OR OTHER BREAST IMAGING INTERVENTIONS WHEN APPROPRIATE. THIS PATIENT WILL BE PLACED IN THE APPROPRIATE REMINDER SYSTEM. Dictated by: Miri Li MD on 03/15/2022 at 11:00 Approved by: Miri Li MD on 03/26/2022 at 10:42 Normal [facility] Laboratory - Chemistry and C hemistry - challengeon 07-25-2020 Albumin [Mass/Vol] 4.4 g/dL Normal 3.4 - 5.0 g/dL [facility]; [facility] Albumin [Mass/Vol] 1.6 g/dL Normal 0.9 - 1.6 [facility]; [facility] ALT [Catalytic activity/Vol] 22 U/L Normal 14 - 59 U/L [facility]; [facility] Anion gap [Moles/Vol] 14 mmol/L Normal 10 - 20 mmol/L [facility]; [facility] AST [Catalytic activity/Vol] 18 U/L Normal 13 - 39 U/L [facility]; [facility] Bilirubin [Mass/Vol] 0.3 mg/dL Normal 0.2 - 1.0 mg/dL [facility]; [facility] Calcium [Mass/Vol] 9.5 mg/dL Normal 8.5 - 10. 1 mg/dL [facility]; [facility] Chloride [Moles/Vol] 102 mmol/L Normal 98 - 107 mmol/L [facility]; [facility] Cholesterol [Mass/Vol] 201 mg/dL Normal 0 - 240 mg/dL [facility]; [facility] Cholesterol in HDL [Mass or moles/Vol] 58 mg/dL Normal 40 - 60 mg/dL [facility]; [facility] Cholesterol in LDL [Mass/Vol] 120 mg/dL Normal 0 - 129 mg/dL [facility]; [facility], [facility] Cholesterol.total/C holesterol in HDL [Mass ratio] 3.5 {ratio} Normal 0.0 - 5.0 [facility]; [facility] CO2 [Moles/Vol] 29.9 mmol/L Normal 21.0 - 32.0 mmol/L [facility]; [facility] Creatinine [Mass/Vol] 0.8 mg/dL Normal 0.5 - 1.0 mg/dL [facility]; [facility], [facility] CRP [Mass/Vol] mg/L Normal 0.00 - 0.90 mg/dL [facility]; [facility] GFR/1.73 sq M.predicted among blacks MDRD (S/P/Bld) [Vol rate/Area] mL/min/{1.73_m2} Normal 60 - 999 {ML/MINUTE} [facility]; [facility] GFR/1.73 sq M.predicted MDRD (S/P/Bld) [Vol rate/Area] mL/min/{1.73_m2} Normal 60 - 999 {ML/MINUTE} [facility].; [facility] Globulin (S) [Mass/Vol] 2.8 g/dL Normal 1.5 - 3.8 g/dL [facility]; [facility], [facility] Glucose [Mass/Vol] 83 mg/dL Normal 74 - 106 mg/dL [facility]; [facility], [facility] Lipid 1996 panel Normal [facility]; [facility] Potassium [Moles/Vol] 3.5 mmol/L Normal 3.5 - 5.1 mmol/L [facility]; [facility], [facility] Protein [Mass/Vol] 7.2 g/dL Normal 6.4 - 8.2 g/dL [facility]; [facility], [facility] Sodium [Moles/Vol] 142 mmol/L Normal 136 - 145 mmol/L [facility]; [facility], [facility] Triglyceride [Mass/Vol] 115 mg/dL Normal 0 - 150 mg/dL [facility]; [facility] TSH Qn 1.06 m[IU]/L Normal 0.35 - 3.74 {uIU/ml} [facility]; [facility] Urea nitrogen [Mass/Vol] 9 mg/dL Normal 7 - 18 mg/dL [facility]; [facility] Urea nitrogen/Creatinine [Mass ratio] 11 {ratio} Normal 0 - 30 {ratio} [facility]; [facility] Laboratory - Hematology and Cell countson 07-25-2020 Basophils (Bld) [#/Vol] 0.10 {x10EE3/UL} Normal 0.00 - 0.10 {x10EE3/UL} [facility]; [facility] Basophils/100 WBC (Bld) 1.3 % Normal 0.0 - 2.0 % [facility]; [facility] Eosinophils (Bld) [#/Vol] 0.50 {x10EE3/UL} Normal 0.00 - 0.50 {x10EE3/UL} [facility]; [facility] Eosinophils/100 WBC (Bld) 10.6 % Abnormal 0.0 - 7.0 % [facility]; [facility] Erythrocyte distribution width (RBC) [Ratio] 12.5 % Normal 12.0 - 15.6 % [facility]; [facility] Hematocrit (Bld) [Volume fraction] 38.2 % Normal 34.0 - 46.0 % [facility]; [facility] Hemoglobin (Bld) [Mass/Vol] 13.0 g/dL Normal 12.0 - 16.0 g/dL [facility]; [facility] Lymphocytes (Bld) [#/Vol] 1.40 {x10EE3/UL} Normal 0.80 - 2.80 {x10EE3/UL} [facility].; [facility], [facility]. Lymphocytes/100 WBC (Bld) 27.4 % Normal 20.0 - 45.0 % [facility] [employer] [facility] [place] [facility], [facility]. MCH (RBC) [Entitic mass] 32 pg Normal 27 - 33 pg [facility] [employer] [facility] [place], [facility].; [facility], [facility]. MCHC (RBC) [Mass/Vol] 34 {X10_3} Normal 32 - 36 {X10_3} [facility] [employer] MCV (RBC) [Entitic vol] 93 fL Normal 80 - 99 fL [facility] [employer] [facility] [place].; [facility] [employer] [facility] [place], [facility]. Monocytes (Bld) [#/Vol] 0.40 {x10EE3/UL} Normal 0.20 - 1.00 {x10EE3/UL} [facility] [employer] [facility] [place], [employer].; [facility] [employer] Monocytes/100 WBC (Bld) 8.3 % Normal 0.0 - 10.0 % [facility] [employer] [facility] [place].; [facility] [employer] [facility] [place], Inc. Morphology Naren (Bld) [Interp] N/A Normal [facility] [employer] [facility] [place].; [facility] [employer] [facility] [place], [facility]. Neutrophils (Bld) [#/Vol] 2.60 {x10EE3/UL} Normal 1.50 - 7.10 {x10EE3/UL} [facility] [employer] [facility] [place], [employer] [facility] [employer] [facility] [place], [employer] Neutrophils/100 WBC (Bld) 52.4 % Normal 46.0 - 76.0 % [facility] [employer] [facility] [place].; [facility] [employer] [facility] [place], [employer] Platelet mean volume (Bld) [Entitic vol] 8.9 fL Normal 6.6 - 10.5 fL [facility] [place], [employer] [facility] [employer] [facility] [place], [employer] Platelets (Bld) [#/Vol] 263 {x10EE3/UL} Normal 150 - 450 {x10EE3/UL} [facility] [place], [employer] [facility] [employer] [facility] [place], [employer] RBC (Bld) [#/Vol] 4.10 {x_10EE6/UL} Normal 4.10 - 5.30 {x_10EE6/UL} [facility], [facility].; [facility], [facility]. WBC (Bld) [#/Vol] 4.9 {x_10EE3/UL} Normal 4.5 - 10.8 {x_10EE3/UL} [facility], [facility].; [facility], [facility]. No Panel Informationon [birth year] AGE 45 {years} Normal [facility].; [facility], [facility]. ALK PHOS 72 U/L Normal 46 - 116 U/L [facility], [facility].; [facility], [facility]. CBC + DIFF Normal [facility].; [facility], [facility]. CMP with eGFR Normal [facility].; [facility], [facility]. MANUAL DIFF N/A Normal [facility].; [employer] [facility] [employer] [facility] [place], [employer]. Vital Signs Date Time Vital Sign Value Performing Clinician Facility 12-13-2024 14:45-0400 Body height 175.26 cm No Primary Care Physician [facility] 12-13-2024 14:45-0400 Body mass index (BMI) [Ratio] 24.4 kg/m2 No Primary Care Physician [facility] 12-13-2024 14:45-0400 Body weight 74.95 kg No Primary Care Physician [facility] 12-13-2024 14:45-0400 Diastolic blood pressure 76 mm[Hg] No Primary Care Physician [facility] 12-13-2024 14:45-0400 Systolic blood pressure 111 mm[Hg] No Primary Care Physician [facility] 10-07-2024 14:52-0400 Body height 172.09 cm [facility], [facility].; [facility], [facility]. 10-07-2024 14:52-0400 Body mass index (BMI) [Ratio] 25.67 kg/m2 [facility], [facility].; [facility], [facility]. 10-07-2024 14:52-0400 Body surface area Derived from formula 1.89 m2 [facility], [facility].; [facility], [facility]. 10-07-2024 14:52-0400 Body weight 76.02 kg [facility], [facility].; [facility], [employer] 10-07-2024 14:52-0400 Diastolic blood pressure 73 mm[Hg] [facility], [facility].; [facility], [facility]. Comment on above: Patient Position: Sitting; Cuff Location : Left Arm; Cuff Size: Standard 10-07-2024 14:52-0400 Heart rate 93 /min [facility], [facility].; [facility], [facility]. Comment on above: Pattern: Regular 10-07-2024 14:52-0400 Systolic blood pressure 101 mm[Hg] [facility], [facility].; [facility], [facility]. Comment on above: Patient Position: Sitting; Cuff Location : Left Arm; Cuff Size: Standard 11-05-2022 14:44-0400 Body height 175.26 cm No Primary Care Physician [facility] 11-05-2022 14:36-0400 Body mass index (BMI) [Ratio] 22.7 kg/m2 No Primary Care Physician [facility] 11-05-2022 14:36-0400 Body weight 69.9 kg No Primary Care Physician [facility] 11-05-2022 14:36-0400 Diastolic blood pressure 66 mm[Hg] No Primary Care Physician [facility] 11-05-2022 14:36-0400 Systolic blood pressure 100 mm[Hg] No Primary Care Physician [facility] 10-11-2020 09:17-0400 Body height 172.09 cm Estela Tolbert RN [facility], [employer] [facility], [facility]. 10-11-2020 09:17-0400 Body mass index (BMI) [Ratio] 22.52 kg/m2 Estela Tolbert RN [facility], [facility].; [facility], [facility]. 10-11-2020 09:17-0400 Body surface area Derived from formula 1.79 m2 Estela Tolbert RN [facility], Inc.; [facility], Inc[facility] 10-11-2020 09:17-0400 Body weight 66.68 kg Estela Tolbert RN [facility], Inc.; [facility], Inc[facility] 10-11-2020 09:17-0400 Diastolic blood pressure 70 mm[Hg] Estela Tolbert RN [facility], Inc.; [employer] [facility] [employer] [facility] [place], [employer]. Comment on above: Patient Position: Sitting; Cuff Location : Left Arm; Cuff Size: Large 10-11-2020 09:17-0400 Heart rate 89 /min Estela Tolbert RN [facility], Inc.; [employer] [facility] [employer] [facility] [place], [employer]. Comment on above: Pattern: Regular 10-11-2020 09:17-0400 Systolic blood pressure 100 mm[Hg] Estela Tolbert RN [facility], Inc.; [employer] [facility] [employer] [facility] [place], [employer]. Comment on above: Patient Position: Sitting; Cuff Location : Left Arm; Cuff Size: Large 07-25-2020 15:050 Body height 172.09 cm Estela Tolbert RN [facility], Inc.; [facility], Inc. 07-25-2020 [id number] Body mass index (BMI) [Ratio] 21.75 kg/m2 Estela Tolbert RN [facility], Inc.; [employer] [facility], Inc. 07-25-2020 [id number] Body surface area Derived from formula 1.76 m2 Estela Tolbert RN [facility], Inc.; [facility] [employer] [facility] [place], [employer]. 07-25-2020 [id number] Body weight 64.41 kg Estela Tolbert RN [facility], Inc.; [facility] [employer] [facility] [place], [employer]. 07-25-2020 15:21-0500 Diastolic blood pressure 61 mm[Hg] Estela Tolbert RN [facility], Inc.; [employer] [facility] [employer] [facility] [place], [employer]. Comment on above: Patient Position: Sitting; Cuff Location : Left Arm; Cuff Size: Large 07-25-2020 15:21-0500 Heart rate 79 /min Estela Tolbert RN [employer] [facility] [employer]. Comment on above: Pattern: Regular 07-25-2020 15:21-0500 Systolic blood pressure 92 mm[Hg] Estela Tolbert RN [facility] [employer].; [employer] [facility] [employer] [facility] [place]2[employer]. Comment on above: Patient Position: Sitting; Cuff Location : Left Arm; Cuff Size: Large 10-26-2018 15:17-0400 Body height 172.09 cm LILIA EMERSON MD Work Phone: [facility] [employer].; [place]. 10-26-2018 15:17-0400 Body mass index (BMI) [Ratio] 21.75 kg/m2 LILIA EMERSON MD Work Phone: [employer].; [place]. 10-26-2018 15:17-0400 Body surface area Derived from formula 1.76 m2 LILIA EMERSON MD Work Phone: [employer].; [place]. 10-26-2018 15:17-0400 Body weight 64.41 kg LILIA EMERSON MD Work Phone: [employer].; [employer] [facility] [employer]. 10-26-2018 15:17-0400 Diastolic blood pressure 71 mm[Hg] LILIA EMERSON MD Work Phone: [employer].; [employer] [facility] [employer]. Comment on above: Patient Position: Sitting; Cuff Location : Left Arm; Cuff Size: Large 10-26-2018 15:17-0400 Heart rate 86 /min LILIA EMERSON MD Work Phone: [employer].; [place]. Comment on above: Pattern: Regular 10-26-2018 15:17-0400 Systolic blood pressure 107 mm[Hg] LILIA EMERSON MD Work Phone: [employer].; [employer] Comment on above: Patient Position: Sitting; Cuff Location : Left Arm; Cuff Size: Large 06-29-2018 10:54-0500 Body height 172.09 cm Bella Medina RN [facility] [employer] [facility] [place], [employer].; [employer] 06-29-2018 10:54-0500 Body mass index (BMI) [Ratio] 21.6 kg/m2 Bella Medina RN [facility] [employer] [facility] [place], [employer].; [employer] 06-29-2018 10:54-0500 Body surface area Derived from formula 1.76 m2 Bella Medina RN [facility] [employer] [facility] [place], [employer].; [employer] 06-29-2018 10:54-0500 Body temperature 98 [degF] Bella Medina RN [facility] [employer] [facility] [place], [employer].; [employer] Comment on above: Method: Oral 06-29-2018 10:54-0500 Body weight 63.96 kg Bella Medina RN [facility] [employer] [facility] [place], [employer].; [employer] 06-29-2018 10:54-0500 Diastolic blood pressure 70 mm[Hg] Bella Medina RN [facility] [employer] [facility] [place], [employer].; [employer] Comment on above: Patient Position: Sitting; Cuff Location : Left Arm; Cuff Size: Standard 06-29-2018 10:54-0500 Heart rate 88 /min Bella Medina RN [facility] [employer] [facility] [place], [employer].; [employer] Comment on above: Pattern: Regular 06-29-2018 10:54-0500 Systolic blood pressure 102 mm[Hg] Bella Medina RN [facility] [employer] Comment on above: Patient Position: Sitting; Cuff Location : Left Arm; Cuff Size: Standard 10-04-2016 14:01-0400 Body height 172.09 cm Bella Medina RN [facility] [employer] [facility] [place], Inc.; [employer] 10-04-2016 14:01-0400 Body mass index (BMI) [Ratio] 21.9 kg/m2 Bella Medina RN [facility], Inc.; [employer] [facility] [employer] [facility] [place], [employer]. 10-04-2016 14:01-0400 Body surface area Derived from formula 1.77 m2 Bella Medina RN [facility], Inc.; [employer] [facility] [employer] [facility] [place], Inc. 10-04-2016 14:01-0400 Body temperature 97.9 [degF] Bella Medina RN [facility], Inc.; [employer] [facility] [employer] [facility] [place], [employer]. Comment on above: Method: Oral 10-04-2016 14:01-0400 Body weight 64.86 kg Bella Medina RN [facility] [employer] [facility] [place], Inc.; [employer] [facility] [employer] [facility] [place], [employer]. 10-04-2016 14:01-0400 Diastolic blood pressure 68 mm[Hg] Bella Medina RN [facility], Inc.; [employer] [facility] [employer] [facility] [place], [employer]. Comment on above: Patient Position: Sitting; Cuff Location : Left Arm; Cuff Size: Standard 10-04-2016 14:01-0400 Heart rate 85 /min Bella Medina RN [facility], Inc.; [employer] [facility] [employer] [facility] [place], [employer]. Comment on above: Pattern: Regular 10-04-2016 14:01-0400 Systolic blood pressure 104 mm[Hg] Bella Medina RN [facility], Inc.; [employer] [facility] [employer] [facility] [place], [employer]. Comment on above: Patient Position: Sitting; Cuff Location : Left Arm; Cuff Size: Standard 12-22-2015 11:04-0400 Body height 171.45 cm Bella Medina RN [facility], Inc.; [facility] [employer] [facility] [place], [employer]. 12-22-2015 11:04-0400 Body mass index (BMI) [Ratio] 21.66 kg/m2 Bella Medina RN [facility] [employer] [facility] [place], [employer].; [employer] [facility] [employer] [facility] [place], [employer]. 12-22-2015 11:04-0400 Body surface area Derived from formula 1.75 m2 Bella Medina RN [facility], Inc.; [employer] [facility] [employer] [facility] [place], [employer]. 12-22-2015 11:04-0400 Body temperature 98.4 [degF] Bella Medina RN [facility] [employer] [facility] [place], Inc.; [employer] [facility] [place], [employer]. Comment on above: Method: Oral 12-22-2015 11:04-0400 Body weight 63.69 kg Bella Medina RN [facility], Inc.; [employer] [facility] [employer] [facility] [place], [employer]. 12-22-2015 11:04-0400 Diastolic blood pressure 67 mm[Hg] Bella Medina RN [facility], Inc.; [employer] [facility] [place], [employer]. Comment on above: Patient Position: Sitting; Cuff Location : Left Arm; Cuff Size: Standard 12-22-2015 11:04-0400 Heart rate 75 /min Bella Medina RN [facility] [employer] [facility] [place] [facility] [employer] [facility] [place], [employer]. Comment on above: Pattern: Regular 12-22-2015 11:04-0400 Inhaled oxygen concentration 21 % Bella Medina RN [facility] [employer] [facility] [place], [employer].; [employer] [facility] [employer] [facility] [place], [employer]. Comment on above: Room air 12-22-2015 11:04-0400 SaO2% (BldA) [Mass fraction] 97 % Bella Medina RN [facility] [employer] [facility] [place], [employer].; [employer] [facility] [employer] [facility] [place], [employer]. 12-22-2015 11:04-0400 Systolic blood pressure 100 mm[Hg] Bella Medina RN [facility] [employer] [facility] [place]2[employer].; [employer] [facility] [employer] [facility] [place], [employer]. Comment on above: Patient Position: Sitting; Cuff Location : Left Arm; Cuff Size: Standard 10-12-2015 13:49-0400 Body height 175.26 cm Estela Tolbert RN [facility] [employer] [facility] [place], [employer].; [employer] [facility] [employer] [facility] [place], [employer]. 10-12-2015 13:49-0400 Body mass index (BMI) [Ratio] 21.41 kg/m2 Estela Tolbert RN [facility] [employer] [facility] [place], [employer].; [employer] [facility] [employer] [facility] [place], [employer]. 10-12-2015 13:49-0400 Body surface area Derived from formula 1.8 m2 Estela Tolbert RN [facility] [employer] [facility] [place], [employer].; [employer] [facility] [employer] [facility] [place], [employer]. 10-12-2015 13:49-0400 Body weight 65.77 kg Estela Tolbert RN [facility] [employer] [facility] [place], [employer].; [employer] [facility] [employer] [facility] [place], [employer]. 10-12-2015 13:49-0400 Diastolic blood pressure 62 mm[Hg] Estela Tolbert RN [facility] [employer] [facility] [place], [employer].; [employer] [facility] [employer] [facility] [place], [employer]. Comment on above: Patient Position: Sitting; Cuff Location : Left Arm; Cuff Size: Standard 10-12-2015 13:49-0400 Heart rate 82 /min Estela Tolbert RN [facility], Inc.; [employer] [facility] [employer] [facility] [place], [employer]. Comment on above: Pattern: Regular 10-12-2015 13:49-0400 Systolic blood pressure 91 mm[Hg] Estela Tolbert RN [facility] [employer] [facility] [place], [employer].; [employer] [facility] [employer] [facility] [place], [employer]. Comment on above: Patient Position: Sitting; Cuff Location : Left Arm; Cuff Size: Standard 10-02-2012 10:35-0400 Body height 172.72 cm Bella Medina RN [facility] [employer] [facility] [place], [employer] [facility] [employer] [facility] [place], [employer]. 10-02-2012 10:35-0400 Body mass index (BMI) [Ratio] 20.68 kg/m2 Bella Medina RN [facility], [employer] [facility] [employer] [facility] [place], [employer] 10-02-2012 10:35-0400 Body surface area Derived from formula 1.74 m2 Bella Medina RN [facility], [employer].; [employer] [facility] [employer] [facility] [place], [employer]. 10-02-2012 10:35-0400 Body temperature 98.7 [degF] Bella Medina RN [facility], [employer] [facility] [employer] [facility] [place], [employer]. Comment on above: Method: Oral 10-02-2012 10:35-0400 Body weight 61.69 kg Bella Medina RN [facility] [employer] [facility] [place], [employer].; [employer] [facility] [employer] [facility] [place], [employer]. 10-02-2012 10:35-0400 Diastolic blood pressure 69 mm[Hg] Bella Medina RN [facility] [employer] [facility] [place], [employer] [facility] [employer] [facility] [place], [employer]. Comment on above: Patient Position: Sitting; Cuff Location : Left Arm; Cuff Size: Standard 10-02-2012 10:35-0400 Heart rate 72 /min Bella Medina RN [facility] [employer] [facility] [place], [employer] [facility] [employer] [facility] [place]. Comment on above: Pattern: Regular 10-02-2012 10:35-0400 Systolic blood pressure 99 mm[Hg] Bella Medina RN [facility] [employer] [facility] [place].; [facility] [employer] [facility] [place]. Comment on above: Patient Position: Sitting; Cuff Location : Left Arm; Cuff Size: Standard 09-25-2012 15:16-0400 Body height 172.72 cm LILIA EMERSON MD Work Phone: [facility] [employer] [facility] [place]; [employer] [facility] [employer]. 09-25-2012 15:16-0400 Body mass index (BMI) [Ratio] 20.83 kg/m2 LILIA EMERSON MD Work Phone: [facility] [employer] [facility] [place]; [employer] [facility] [employer] [facility] [place]. 09-25-2012 15:16-0400 Body surface area Derived from formula 1.74 m2 LILIA EMERSON MD Work Phone: [facility]; [employer] [facility] [employer]. 09-25-2012 15:16-0400 Body temperature 98.1 [degF] LILIA EMERSON MD Work Phone: [facility] [employer]; [employer] [facility] [employer]. Comment on above: Method: Oral 09-25-2012 15:16-0400 Body weight 62.14 kg LILIA EMERSON MD Work Phone: [facility] [employer] [facility] [place].; [employer] [facility] [employer] [facility] [place]. 09-25-2012 15:16-0400 Diastolic blood pressure 74 mm[Hg] LILIA EMERSON MD Work Phone: [facility] [employer] [facility] [place]; [employer] [facility] [employer]. Comment on above: Patient Position: Sitting; Cuff Location : Left Arm; Cuff Size: Large 09-25-2012 15:16-0400 Heart rate 86 /min LILIA EMERSON MD Work Phone: [facility] [employer] [facility] [place]; [employer] [facility] [employer]. Comment on above: Pattern: Regular 09-25-2012 15:16-0400 Systolic blood pressure 118 mm[Hg] LILIA EMERSON MD Work Phone: [employer]; [place]. Comment on above: Patient Position: Sitting; Cuff Location : Left Arm; Cuff Size: Large 02-05-2012 09:16-0400 Body height 172.72 cm LILIA EMERSON MD Work Phone: [employer]; [place]. 02-05-2012 09:16-0400 Body mass index (BMI) [Ratio] 19.61 kg/m2 LILIA EMERSON MD Work Phone: [employer]; [place]. 02-05-2012 09:16-0400 Body surface area Derived from formula 1.7 m2 LILIA EMERSON MD Work Phone: [employer]; [place]. 02-05-2012 09:16-0400 Body temperature 98.6 [degF] LILIA EMERSON MD Work Phone: [employer]; [place]. Comment on above: Method: Oral 02-05-2012 09:16-0400 Body weight 58.51 kg LILIA EMERSON MD Work Phone: [employer]; [place]. 02-05-2012 09:16-0400 Diastolic blood pressure 63 mm[Hg] LILIA EMERSON MD Work Phone: [employer]; [place]. Comment on above: Patient Position: Sitting; Cuff Location : Left Arm; Cuff Size: Standard 02-05-2012 09:16-0400 Heart rate 87 /min LILIA EMERSON MD Work Phone: [employer]; [place]. Comment on above: Pattern: Regular 02-05-2012 09:16-0400 Systolic blood pressure 96 mm[Hg] LILIA EMERSON MD Work Phone: [employer]; [employer] Comment on above: Patient Position: Sitting; Cuff Location : Left Arm; Cuff Size: Standard 09-12-2011 14:48-0400 Body height 172.72 cm LILIA EMERSON MD Work Phone: [employer]; [employer] 09-12-2011 14:48-0400 Body mass index (BMI) [Ratio] 20.07 kg/m2 LILIA EMERSON MD Work Phone: [employer]; [employer] 09-12-2011 14:48-0400 Body surface area Derived from formula 1.71 m2 LILIA EMERSON MD Work Phone: [employer]; [employer] 09-12-2011 14:48-0400 Body temperature 98.3 [degF] LILIA EMERSON MD Work Phone: [employer]; [employer] Comment on above: Method: Oral 09-12-2011 14:48-0400 Body weight 59.88 kg LILIA EMERSON MD Work Phone: [employer]; [place]. 09-12-2011 14:48-0400 Diastolic blood pressure 68 mm[Hg] LILIA EMERSON MD Work Phone: [employer]; [employer] Comment on above: Patient Position: Sitting; Cuff Location : Left Arm; Cuff Size: Standard 09-12-2011 14:48-0400 Heart rate 76 /min LILIA EMERSON MD Work Phone: [employer]; [employer] Comment on above: Pattern: Regular 09-12-2011 14:48-0400 Systolic blood pressure 100 mm[Hg] LILIA EMERSON MD Work Phone: [employer]; [employer]. Comment on above: Patient Position: Sitting; Cuff Location : Left Arm; Cuff Size: Standard 10-15-2010 10:52-0400 Body height 172.72 cm LILIA EMERSON MD Work Phone: [employer]; [place]. 10-15-2010 10:52-0400 Body mass index (BMI) [Ratio] 21.59 kg/m2 LILIA EMERSON MD Work Phone: [employer]; [place]. 10-15-2010 10:52-0400 Body surface area Derived from formula 1.77 m2 LILIA EMERSON MD Work Phone: [employer] [employer]; [place]. 10-15-2010 10:52-0400 Body temperature 97.9 [degF] LILIA EMERSON MD Work Phone: [employer]; [place]. Comment on above: Method: Oral 10-15-2010 10:52-0400 Body weight 64.41 kg LILIA EMERSON MD Work Phone: [employer] [place]. 10-15-2010 10:52-0400 Diastolic blood pressure 76 mm[Hg] LILIA EMERSON MD Work Phone: [employer]; [place]. Comment on above: Patient Position: Sitting; Cuff Location : Left Arm; Cuff Size: Large 10-15-2010 10:52-0400 Heart rate 84 /min LILIA EMERSON MD Work Phone: [employer]; [place]. Comment on above: Pattern: Regular 10-15-2010 10:52-0400 Systolic blood pressure 111 mm[Hg] LILIA EMERSON MD Work Phone: [facility]; [facility] Comment on above: Patient Position: Sitting; Cuff Location : Left Arm; Cuff Size: Large Encounters Encounter Date Encounter Type Care Provider Facility Start: 12-13-2024 End: 12-13-[address] Roxane Talbot MD [facility] Start: 12-13-2024 End: 12-13-2024 ambulatory Roxane Talbot Facility:[facility] Start: 12-13-2024 End: 12-13-[address] Roxane Talbot MD -[facility] Work Phone: Start: 10-07-2024 End: 10-07-2024 Office outpatient visit 15 minutes LILIA EMERSON MD Work Phone: [facility] Start: 03-03-2023 End: 03-03-2023 ambulatory [facility] Work Phone: Start: 03-03-2023 End: 03-03-2023 Patient encounter procedure [facility]-Outpatient Breast Imaging Work Phone: Start: 11-05-2022 End: 11-05-2022 ambulatory No Primary Care Physician [facility] Work Phone: Start: 11-05-2022 End: 11-05-2022 Patient encounter procedure No Primary Care Physician [facility]-Laboratory, Specimen Start: 11-05-2022 End: 11-05-2022 Patient encounter procedure No Primary Care Physician [facility] Start: 10-04-2022 End: 10-04-2022 ambulatory BETITO CHAVIRAMSBERYL [facility] Start: 03-26-2022 End: 03-26-2022 Historical Summary LILIA EMERSON MD Work Phone: [facility] Start: 03-15-2022 End: 03-15-2022 ambulatory BETITO COTTRELL [facility] Start: 02-08-2022 ambulatory BTEITO COTTRELL [facility] Start: 08-06-2021 End: 08-06-2021 Historical Summary LILIA EMERSON MD Work Phone: [employer] Start: 03-16-2021 End: 03-16-2021 Historical Summary LILIA EMERSON MD Work Phone: [employer] Start: 11-25-2020 End: 11-25-2020 Medication Refill/Order LILIA EMERSON MD Work Phone: [employer] Start: 10-11-2020 End: 10-11-2020 Office outpatient visit 15 minutes LILIA EMERSON MD Work Phone: [employer] Start: 07-27-2020 End: 07-27-2020 Results Review LILIA EMERSON MD Work Phone: [employer] Start: 07-25-2020 End: 07-25-2020 Office outpatient visit 15 minutes LILIA EMERSON MD Work Phone: [employer] Start: 10-26-2018 End: 10-26-2018 Office outpatient visit 15 minutes LILIA EMERSON MD Work Phone: [employer] Start: 06-29-2018 End: 06-29-2018 Office outpatient visit 15 minutes LILIA EMERSON MD Work Phone: [place]. Start: 10-04-2016 End: 10-04-2016 Office outpatient visit 15 minutes LILIA EMERSON MD Work Phone: [employer] Start: 12-22-2015 End: 12-22-2015 Office outpatient visit 15 minutes LILIA EMERSON MD Work Phone: [facility] Start: 10-12-2015 End: 10-12-2015 Office outpatient visit 15 minutes LILIA EMERSON MD Work Phone: [facility] Start: 10-02-2012 End: 10-02-2012 Patient encounter procedure LILIA EMERSON MD Work Phone: [facility] Start: 09-25-2012 End: 09-25-2012 Patient encounter procedure LILIA EMERSON MD Work Phone: [facility] Start: 02-05-2012 End: 02-05-2012 Patient encounter procedure LILIA EMERSON MD Work Phone: [facility] Start: 09-12-2011 End: 09-12-2011 Patient encounter procedure LILIA EMERSON MD Work Phone: [facility] Start: 11-02-2010 End: 11-02-2010 Phone Encounter LILIA EMERSON MD Work Phone: [facility] Start: 10-15-2010 End: 10-15-2010 Patient encounter procedure LILIA EMERSON MD Work Phone: [facility] Procedures Date Procedure Procedure Detail Performing Clinician Start: 10-07-2024 End: 10-07-2024 Therapeutic prophylactic/dx injection subq/im LILIA EMERSON MD Work Phone: Start: 10-07-2024 End: 10-07-2024 Triamcinolone acet inj NOS LILIA EMERSON MD Work Phone: Start: 03-03-2023 Screening mammography Start: 03-15-2022 End: 03-15-2022 Screening mammography LILIA EMERSON MD Work Phone: Comment on above: Normal. Start: 07-17-2021 End: 07-17-2021 Mammography Aldo SIMMONS MD Work Phone: Comment on above: mammo; calcification s; repeat in 6 months Start: 11-06-2020 H/O: surgery Hx of bilatera l salpingectomy No Primary Care Physician Start: 10-11-2020 End: 10-11-2020 Dischrg meds reconciled w/current med list JAIME Draper [employer] Start: 10-11-2020 End: 10-11-2020 Therapeutic prophylactic/dx injection subq/im JAIME Draper [employer] Start: 10-11-2020 End: 10-11-2020 Triamcinolone acet inj NOS JAIME Draper [employer] Start: 10-11-2020 End: 10-11-2020 Urinary Incontinence Estela Tolbert RN Comment on above: Negative. Start: 07-25-2020 End: 07-25-2020 Dischrg meds reconciled w/current med list Aldo SIMMONS MD Work Phone: Start: 10-26-2018 End: 10-26-2018 Therapeutic prophylactic/dx injection subq/im LILIA EMERSON MD Work Phone: Start: 10-26-2018 End: 10-26-2018 Triamcinolone acet inj NOS LILIA EMERSON MD Work Phone: Start: 06-29-2018 End: 06-29-2018 Dischrg meds reconciled w/current med list BETITO EMERSON MD Work Phone: Start: 10-04-2016 End: 10-04-2016 Therapeutic prophylactic/dx injection subq/im LILIA EMERSON MD Work Phone: Start: 10-04-2016 End: 10-04-2016 Triamcinolone acet inj NOS LILIA EMERSON MD Work Phone: Start: 10-12-2015 End: 10-12-2015 Therapeutic prophylactic/dx injection subq/im LILIA EMERSON MD Work Phone: Start: 10-12-2015 End: 10-12-2015 Triamcinolone acet inj NOS LILIA EMERSON MD Work Phone: Start: 09-25-2012 End: 09-25-2012 Therapeutic prophylactic/dx injection subq/im FLAVIO JIMENEZ MD Work Phone: Start: 09-25-2012 End: 09-25-2012 Triamcinolone acet inj NOS FLAVIO JIMENEZ MD Work Phone: Start: 02-05-2012 End: 02-05-2012 Dexamethasone sodium phos JAIMEE STEINBERG MD Work Phone: Start: 02-05-2012 End: 02-05-2012 Therapeutic prophylactic/dx injection subq/im JAIMEE STEINBERG MD Work Phone: Start: 09-12-2011 End: 09-12-2011 Therapeutic prophylactic/dx injection subq/im BETITO EMERSON MD Work Phone: Start: 09-12-2011 End: 09-12-2011 Triamcinolone acet inj NOS BETITO EMERSON MD Work Phone: Start: 10-15-2010 End: 10-15-2010 Therapeutic prophylactic/dx injection subq/im Aldo SIMMONS MD Work Phone: Start: 10-15-2010 End: 10-15-2010 Triamcinolone acet inj NOS Aldo SIMMONS MD Work Phone: Plan of Treatment Date Care Activity Detail Author Start: 12-13-2024 Screening mammography SCRN MAMM (CAD)W/RAIMUNDO BILAT [facility] Start: 11-05-2022 Liquid based cervical cytology screening [facility] Start: 07-25-2020 Us pelvic nonobstetric real-time image complete US PELVIS, COMPLETE ([id number]) : transvaginal and transabdominal to evaluate left adnexal pain; H/O eSure procedure in the past. Start: 25-Jul-2020 [facility], [facility]. Start: 06-29-2018 Patient Education SINUSITIS Indication: Bacterial sinusitis Start: 29-Jun-2018 Instruction Type: Patient Education [employer] [facility] [employer]. Start: 09-25-2012 Patient Education ALLERGIC RHINITIS Indication: Seasonal allergies Start: 25-Sep-2012 Instruction Type: Patient Education [employer] [facility] [employer]. Start: 02-05-2012 Patient Education POISON RUBEN Indication: POISON RUBEN Start: 05-Feb-2012 Instruction Type: Patient Education [facility] [employer] [facility] [employer]. MG Breast - bilatera l Screening [facility] Path report.final Dx Spec [facility] US Pelvis [facility] Immunizations Immunization Date Immunization Notes Care Provider Latricia tejada 1975 measles, mumps and rubella virus vaccine LILIA EMERSON MD Work Phone: [facility]; [facility] [place] [employer] [facility] [place] Comment on above: @ H.D. Payers Date Payer Category Payer Self-pay [id number] 2009 Private Health Insurance [id number] 2009 Unknown [employer] [id number] 1975 Unknown [id number] 1975 Unknown [id number] 1975 Unknown [id number] Unknown [employer] Unknown [id number] Unknown [id number] Social History Date Type Detail Facility Start: 11-05-2022 Tobacco smoking stat us NHIS Unknown if ever smoked [facility] Start: 10-30-2020 Non-smoker [facility] Start: 1975 Sex Assigned At Female [facility] Alcohol Use: Alcohol Use: ; 1 to 7 drinks per week. [facility] [facility] Tobacco use: Tobacco use: ; N ever smoker. [facility] Start: 07-10-2023 Never smoked tobacco [facility] Progress note 12-13-2024 Note Date & Type Note Facility 12-13-2024 Progress note [facility] Progress note 12-13-2024 Note Date & Type Note Facility 12-13-2024 Progress note Note Date/Time December 13, 2024 3:34pm [facility] [address], [address] [place] [address] OFFICE VISIT Date of Service: 12/13/24 MR#: [id number] Acct: [id number] Name: EDINSON MONTALVO Rep #: [id number] : 1975 Provider: Dr. 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) [employer] Required: No Is patient in pain?: No Allergies No Known Allergies Allergy (Verified 12/13/24 14:46) Medications ?Medication ?Instructions ?Recorded ?Confirmed ?Type cetirizine 10 mg capsule (Zyrtec) 10 mg PO DAILY PRN 0 11/05/22 12/13/24 History Biote SGS + 1 cap PO DAILY 12/08/2311/16 History cholecalciferol (vitamin D3) 125 125 mcg PO DAILY 11/1512/13/24 History mcg (5,000 unit) capsule progesterone micronized 200 mg 200 mg PO DAILY 4 12/13/24 History capsule estrogen testosterone pellets transdermal 12/13/24 History Is last menstrual period known: Yes Last Menstrual Period: 11/01/24 Post menopausal: No Patient : No : No PFSH Medical History Abdominal pain Wears glasses Alcohol use Back pain Non-smoker History of edema Surgical History History of ovarian cystectomy (11/06/20) Hx of bilateral salpingectomy (11/06/20) Hx of unilateral oophorectomy (11/06/20) Family History Mother No problems noted. Father No problems noted. Social History household members: spouse current occupational status: unemployed Smoking Status: Never smoker second hand exposure: No alcohol intake: current alcohol intake frequency: a few times a month substance use type: does not use caffeine: Yes what type of physical activity do you participate in: walking, running, aerobics and weight training frequency: 3-4 times per week seatbelt use: always do you feel safe at home: Yes additional social history: - [employer] History 5 Elective abortions Hx Para 5 Spontaneous abortions Hx # Term Pregnancies Ectopic pregnancies Hx # Pregnancies Multiple births # of living children 5 HPI Encounter for routine gynecological examination Details: EDINSON MONTALVO is a 49 year old who presents for annual exam. gets HRT in [place]. she is having occasional spotting. Last PAP: 11/05/2022 - normal History of abnormal PAP: Last mammogram: done today History of abnormal mammogram: Colon cancer screening: has not had done Other preventative health care screenings: No PCP Female Reproductive History Last Menstrual Period: 11/01/24 Questions: metorrhagia: No, sexually active: Yes, dyspareunia: No and PCB: No Menopausal Symptoms: No hot flashes, No night sweats, No weight change, Yes moodchanges, No difficulty concentrating, No sleep problems and No change in libido ROS Const Constitutional: Reports as per HPI; Denies fatigue, increased appetite, poor appetite, night sweats, weight gain or weight loss Cardio Card: Denies chest pain Resp Resp: Denies cough or dyspnea GI GI: Reports as per HPI; Denies abdominal pain, bloating, constipation, nausea or vomiting : Reports as per HPI and other; Denies difficulty voiding, dysuria, hematuria, hot flashes, nipple discharge, pelvic pain, prolapse symptoms, urinary frequency, urinary incontinence, urinaryurgency, vaginal discharge, vaginal dryness, vaginal odor or vaginal pruritus Skin Skin/Breast: Denies changing lesions, breast mass, breast pain, breast skin changes or nipple discharge Psych Psych: Denies anxiety, change in libido, depression or difficulty concentrating Exam Const General: cooperative, healthy appearing, comfortable, no acute distress, well developed and well groomed [facility] Head: normal to inspection and normocephalic Ears: hearing grossly normal bilaterally and external ears normal Nose: external nose normal Face and sinus: normal facial exam Neck Neck: normal visual inspection, full ROM and no lymphadenopathy Thyroid: thyroid normal Chest Chest palpation & inspection: normal inspection of the chest Breast inspection: normal inspection of the breasts and normal inspection of theaxillae Breast palpation: normal palpation of the breasts, normal palpation of the axillae and no axillary lymphadenopathy Resp Effort & Inspection: normal respiratory effort GI Inspection: normal to inspection and non-distended Palpation: soft, no hepatosplenomegaly and no guarding General: bladder normal to palpation External Female Exam: normal external appearance, normal appearance of the urethra and no lesions Urethra: normal appearance of the urethra and normal palpation Speculum Exam - Vagina: normal appearance of the vagina and normal vaginal discharge Speculum Exam - Cervix: normal appearance of the cervix, no cervical discharge, no lesions and nontender Bimanual Exam- Vagina & Uterus: normal bimanual exam, uterine size normal, bladder normal to palpation, No tender, uterine mobility normal, consistency normal, non-tender and no cervical motion tenderness Bimanual Exam- Adnexa, other: normal adnexae, no masses and non-tender Skin General: no rashes or lesions noted Neuro General: patient alert, moves all extremities and no focal motor deficits Extrem General: normal to inspection and no pedal edema Psych Appearance: grossly normal Mental Status: mental status grossly normal Affect: normal affect Speech and Movement: speech and movement normal Attitude: cooperative Coding Level of Care Code Off vis,est,prev 40-64yrs Diagnoses Encounter for gynecological examination with abnormal finding Z01.411 Gynecological examination findings: abnormal findings PRESENT Vagina bleeding N93.9 Assessment and Plan Assessment and Plan (1) Encounter for routine gynecological examination: Qualifiers: Gynecological examination findings: abnormal findings PRESENT QualifiedCode(s): Z01.411 - Encounter for gynecological examination (general) (routine) with abnormal findings (2) Vagina bleeding: Status: Acute Comment: on bioidentical HRT , ordered pelvic US Plan Cervical cancer screening: pap up to date Breast cancer screening: mamm other health maintenance examination reviewed and orders placed if needed. Encouraged maintenance of a healthy weight and active lifestyle and handout given. Annual exam handout including recommendations for good health guidelines, Calcium/vitamin D recommendations, and basic screening information given. Problem list up to date, see problem list details for any additional plan information. Follow up in one year for annual health maintenance exam or sooner if needed. 12/13/24 1534 <Electronically signed by Roxane bravo MD> Date _ Roxane Talbot MD Cosigner Signature: Date (if applicable) CC: ~ [place] [employer] Work Phone: Evaluation note Note Date & Type Note Facility Evaluation note Diagnosis Onset Date Climacteric acute Encounter for routine gyneco logical examination noneactive [facility] Work Phone: Evaluation note Note Date & Type Note Facility Evaluation note No assessment information availa ble [facility] Work Phone: Evaluation note Note Date & Type Note Facility Evaluation note Diagnosis Onset Date Resolution Vagina bleeding acute November 2:38pm Encounter for routine gynecological examination noneactive December 13, 2024 2:38pm [place] [employer] Work Phone: Reason for referral (narrative) Note Date & Type Note Facility Reason for referral (narrative) No reason for referral information available [place] [facility] Work Phone: Summary Purpose Family History No Family History Records FoundNo Family History Records Found Advance Directives Advance Directive Response Recorded Date/ Time Living Will No October 30, 2020 1 1:52am Power of [employer] Specialist Yes October 30, 2020 11:52am Chief Complaint and Reason for Visit 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) Reason for Visit Climacteric Encounter for routine gynecological examination Chief Complaint SCREENING Chief Complaint Admit Date SCREENING December 13, 2024 1:45 pm 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) December 13, 2024 2:38 pm Reason for Visit Admit Date Vagina bleeding December 13, 2024 2:38 pm Encounter for routine gynecological exam ination December 13, 2024 2:38pm Additional Source Comments INFORMATION SOURCE (unrecogn ized section and content) DATE CREATED AUTHOR 10/28/2022 [facility] DATE CREATED AUTHOR AUTHOR'S ORGANIZ ATION 12/09/2024 [facility] Care Teams (unrecognized sec tion and content) Team Status: Active Member Role Status Dates No Primary Care Physician Primary Care Provider Active Team Status: Inactive Member Role Status Dates No Primary Care Physician Primary Care Provider, Refer ring Provider Active Dr. Roxane Talbot MD Attending Provider Active Team Status: Inactive Member Role Status Dates No Primary Care Physician Primary Care Provider Active Dr. Roxane Talbot MD Attending Provider Active Team Status: Inactive Member Role Status Dates No Primary Care Physician Primary Care Provider Active Dr. Roxane Talbot MD Attending Provider, Referr ing Provider Active Team Status: Active Member Role/Relationship Status Dates No Primary Care Physician Primary Care Provider Active Team Status: Active Member Role/Relationship Status Dates No Primary Care Physician Primary Care Provider Active Start: December 13, 2024 Dr. Roxane Talbot MD Attending Provider Active Start: December 13, 2024 Dr. Roxane Talbot MD Referring Provider Active Start: December 13, 2024 Team Status: Inactive Member Role/Relationship Status Dates No Primary Care Physician Primary Care Provider Active Start: December 13, 2024 End: December 13, 2024 No Primary Care Physician Referring Provider Active Start: December 13, 2024 End: December 13, 2024 Dr. Roxane Talbot MD Attending Provider Active Start: December 13, 2024 End: December 13, 2024 Goals (unrecognized section and content) Goals may be documented in a n alternate sectionGoals may be documented in an alternate sectionGoals may be documented in an alternate section FOR RECORDS PERTAINING TO PATIENTS WHO ARE OR HAVE BEEN ENROLLED IN A CHEMICAL DEPENDENCY/SUBSTANCEABUSE PROGRAM, SOME INFORMATION MAY BE OMITTED. This clinical summary was aggregated from multiple sources. Caution should be exercised in using it in the provision of clinical care. This summary normalizes information from multiple sources, and as a consequence, information in this document may materially change the coding, format and clinical context of patient data. In addition, data may be omitted in some cases. CLINICAL DECISIONS SHOULD BE BASED ON THE PRIMARY CLINICAL RECORDS. [facility] [employer] [facility]. provides no warranty or guarantee of the accuracy or completeness of information in this document.
== END | disposition home or self-care (01) ==
PROVIDERS: Referring Provider Obstetrics & Gynecology; Visit Provider Obstetrics & Gynecology
DX: Z12.31 Encounter for screening mammogram for malignant neoplasm of breast (principal)
CPT/HCPCS: 77063; 77067